=== PATIENT | male | born 1945 | race Caucasian/White ===

== ENCOUNTER 2018-09-02 14:51 | Inpatient (IN) | payer MEDICARE, BC ==
[2018-09-02] VITALS (28 sets, daily range): BP systolic 113–142; BP diastolic 52–75; PULSE 16–77; RESP 12–22; Ht 172.7 cm; Wt 113.1 kg
[~2018-09-02] VITALS: Ht 172.7 cm; Wt 113.1 kg
[~2018-09-02 14:51] MED LIST: SEVOFLURANE 15 MIN ONE
--- NOTE | 2018-09-02 17:27 | HPN ---
Date/Time of Note Date/Time of Note DATE: 09/02/18 TIME: 17:25 Interval H&P Admission Note Pt. seen H&P reviewed: No system changes ELISHA URENA DPM September 02, 2018 17:27
[2018-09-02] MEDS ORDERED: NOVO3I SC (17:59)
[2018-09-02] MEDS ORDERED: VIT500LI PO (17:59)
[2018-09-02] MEDS ORDERED: ATOR10TA65 PO (17:59)
[2018-09-02] MEDS ORDERED: MULTI PO (17:59)
[2018-09-02] MEDS ORDERED: FURO40TA4 PO (17:59)
[2018-09-02] MEDS ORDERED: INSU100I33 SC (17:59)
[2018-09-02] MEDS ORDERED: GABA300C16 PO (17:59)
[2018-09-02] MEDS ORDERED: VIT1TABL65 PO (17:59)
[2018-09-02] MEDS ORDERED: LISI40TA3 PO (17:59)
[2018-09-02] MEDS ORDERED: POTA8TAB2 PO (17:59)
[2018-09-02] MEDS ORDERED: SOD CHLORIDE 0.9% 1,000 ML IV SCH (17:59)
[2018-09-02] MEDS ORDERED: DOXY100T20 PO (17:59)
[2018-09-02] MEDS ORDERED: DORZ1DRO7 BOTH EYES (17:59)
[2018-09-02] MEDS ORDERED: TRAM50TA PO (17:59)
[2018-09-02] MEDS ORDERED: WARF4TAB64 PO (17:59)
[2018-09-02] MEDS ORDERED: CALC600T24 PO (17:59)
[2018-09-02] MEDS ORDERED: DILT180C94 PO (17:59)
--- NOTE | 2018-09-02 19:25 | PREAC ---
Date/Time of Note Date/Time of Note DATE: 09/02/18 TIME: 19:20 Anesthesia Eval and Record Evaluation Time Pre-Procedure Interview DATE: 09/02/18 TIME: 19:20 Age 73 Sex male NPO: 8 hrs Preoperative diagnosis Left foot ulceration Planned procedure Left foot debridement and biopsy, antibiotic cement application, pinning of toes Past Medical History Past Medical History: Includes Cardio: HTN, CAD, CABG, PTCA/Stent Endo: Diabetes Neuro: CVA (Left paralysis) Surgery & Anesthesia Issues No known issue Meds Anticoagulation: No Beta Jazz within 24 hr: No Reason Beta Jazz not given: Pt. not on B-Jazz Reported Medications Insulin Glargine,Hum.rec.anlog (Basaglar Kwikpen U-100) 100 Unit/1 Ml Insuln.pen, 50 UNIT SC QHS, EA 09/02/18 Tramadol Hcl* (Ultram*) 50 Mg Tablet, 50 MG PO BID PRN for PAIN, TAB 09/02/18 Doxycycline Hyclate* (Doxycycline Hyclate*) 100 Mg Tablet.dr, 100 MG PO BID, TAB 09/02/18 Warfarin Sodium* (Warfarin Sodium*) 4 Mg Tablet, 3 MG PO DAILY, TAB 09/02/18 Atorvastatin Calcium (Atorvastatin Calcium) 10 Mg Tablet, 10 MG PO QHS, #30 TAB 09/02/18 Gabapentin* (Gabapentin*) 300 Mg Capsule, 300 MG PO BID, #60 CAP 09/02/18 Calcium Carbonate* (Calcium Carbonate*) 600 MG Ca Tab, 600 MG PO DAILY, TAB 09/02/18 Vit D3 & K/Berberine Hcl/Hops (Ostera Tablet) 1 Each Tablet, 1 EACH PO, TAB 09/02/18 Vit C-Ascorbate Ca-Ascorb Sod (Vitamin C) 500 Mg/15 Ml Liquid, 1000 MG PO DAILY, ML 09/02/18 Multivitamins* (Theragran*) 1 Tab Tab, 1 TAB PO DAILY, TAB 09/02/18 Potassium Chloride* (Klor-Con*) 8 Meq Tablet.sa, 10 MEQ PO DAILY, TAB 09/02/18 Furosemide (Lasix) 40 Mg Tab, 40 MG PO DAILY, TAB 09/02/18 Lisinopril* (Lisinopril*) 40 Mg Tablet, 40 MG PO DAILY, #30 TAB 09/02/18 Diltiazem Hcl* (Diltiazem XT) 180 Mg Capsule.er, 180 MG PO DAILY, #30 CAP 09/02/18 Insulin Aspart* (Novolog Insulin Pen*) 100 Unit/Ml Soln, 15-20 UNIT SC WITH MEALS, EA 09/02/18 Dorzolamide-Timolol* (Cosopt*) 2%-0.5% Pres Free Droperette, 1 DROP BOTH EYES BID, DROP 09/02/18 Current Medications Sodium Chloride 1,000 ml @ 25 mls/hr Q24H IV Last administered on 09/02/18at 18:34; Admin Dose 25 MLS/HR; Start 09/02/18 at 17:59 Meds reviewed: Yes Allergies Coded Allergies: No Known Allergy (Unverified , 09/02/18) Allergies Reviewed: Yes Labs/Studies Labs Reviewed: Reviewed by anesthesiologist test: N/A Pre-procedure Exam Last vitals Vital Signs Date Temp Pulse Resp B/P (MAP) Pulse Ox O2 O2 Flow FiO2 Time Delivery Rate 09/02/18 97.8 16 16 139/63 99 Room Air 17:25 (88) Airway: Adequate mouth opening Mallampati: Mallampati II Teeth: Normal Lung: Normal Heart: Normal ASA Physical Status ASA physical status: 3 Emergency: None Planned Anesthetic General/MAC: LMA Planned Pain Management Parenteral pain med Pre-operative Attestations Prior to commencing anesthesia and surgery, the patient was re-evaluated, there was verification of: *The patient's identity *The results of appropriate recent lab work and preoperative vital signs *The above evaluation not changing prior to induction *Anesthetic plan, risk benefits, alternative and complications discussed with patient/family; questions answered; patient/family understands, accepts and wishes to proceed. ALEXEI OSHEA MD September 02, 2018 19:25
[2018-09-02] MEDS ORDERED: LIDOCAINE 1% (MPF) 30 ML INJ ONE (19:36)
[2018-09-02] MEDS ORDERED: POLYMYXIN/BACITRACIN 1L IRRIG IRR ONE (20:07)
[2018-09-02] MEDS ORDERED: PROPOFOL 20 ML ONE (20:16)
[2018-09-02] MEDS ORDERED: CEFAZOLIN 1 GM INJ ONE (20:16)
[2018-09-02] MEDS ORDERED: EPHEDrine 25 MG/5 ML SYG ONE (20:16)
[2018-09-02] MEDS ORDERED: LIDOCAINE 2% (SDV) 5 ML INJ ONE (20:16)
--- NOTE | 2018-09-02 20:34 | SIPON ---
Date/Time of Note Date/Time of Note DATE: 09/02/18 TIME: 20:33 Operative Report Preoperative Diagnosis left foot ulceration PAD OM left foot Postoperative Diagnosis same Operation/Procedure Performed left foot debridement left foot implantation nonbiodegradable antibiotic cement Surgeon see signature line assistant housekeeping manager Davey Sanchez DPM Anesthesia: MAC Estimated blood loss: 10 - 50 ml's Transfusion Required none Specimen bone culture/ bone pathology Grafts/Implants none Complications none ELISHA URENA DPM September 02, 2018 20:34
[2018-09-02] MEDS ORDERED: EPHEDrine 25 MG/5 ML SYG IV PRN (21:00)
[2018-09-02] MEDS ORDERED: ONDANSETRON 4 MG INJ IV PRN (21:00)
[2018-09-02] MEDS ORDERED: LABETALOL HCL 20MG INJ IV PRN (21:00)
[2018-09-02] MEDS ORDERED: MIDAZOLAM 1 MG/ML 2 ML INJ IV PRN (21:00)
[2018-09-02] MEDS ORDERED: MEPERIDINE 25 MG INJ IV PRN (21:00)
[2018-09-02] MEDS ORDERED: FENTAnyl 50 MCG/ML VIAL IV PRN ×3 (21:00)
[2018-09-02] MEDS ORDERED: DIPHENHYDRAMINE 50 MG INJ IV PRN (21:00)
[2018-09-02] MEDS ORDERED: hydrALAzine 20 MG INJ IV PRN (21:00)
[2018-09-02] MEDS ORDERED: METOCLOPRAMIDE 10 MG INJ IV PRN (21:00)
[2018-09-02] MEDS ORDERED: OXYCODONE/ACETAMINOPHEN (5/325) TAB PO PRN ×2 (21:00)
--- NOTE | 2018-09-02 22:32 | OPR ---
DATE OF OPERATION: 09/02/2018 SURGEON: Elisha Shaffer DPM GEOLOGY TECHNICIAN: Davey Sanchez DPM PREOPERATIVE DIAGNOSES: 1. Left foot hallux infected ulceration. 2. Osteomyelitis. 3. Failed outpatient treatment. 4. Enterococcal infection. 5. Peripheral arterial disease. POSTOPERATIVE DIAGNOSES: 1. Left foot hallux infected ulceration. 2. Osteomyelitis 3. Failed outpatient treatment. 4. Enterococcal infection. 5. Peripheral arterial disease. OPERATION: 1. Left foot excisional debridement of skin, subcutaneous tissue and bone, less than 20 cm2. 2. Implantation of antibiotic polymethyl methacrylate with gentamicin cement. PATHOLOGY: Culture and bone for pathology. ANESTHESIA: MAC with local lidocaine 1% plain. ESTIMATED BLOOD LOSS: 20 mL MATERIALS: Polymethyl methacralate cement with gentamicin. COMPLICATIONS: None. INDICATION FOR PROCEDURE: Infected ulceration left hallux with exposed bone, interphalangeal joint. The patient had radiographs, MRI revealing osteomyelitis of the distal proximal phalanx and sesamoid s. The patient is requesting attempts at limb salvage and patient at risk for amputation. The patie nt is scheduled for elective angiography. Had been seen by vascular in the preoperative setting and also cleared by his primary. The patient has a history of chronic Coumadin use, has a history of cor onary artery disease with CABG in the past. Discussed planned procedure. Informed consent was obtai dillan. All questions answered to family's satisfaction. PROCEDURE IN DETAIL: The patient brought into the operating room and placed in the supine position. Formal timeout was performed. The foot was properly marked, confirmed by the surgical team, prepped and draped in usual sterile fashion. Formal timeout was performed. Using a rongeur, pickup, curet, excisional debridement of the ulceration of necrotic bone, the medial aspect of the hallux IPJ as we ll as ulcerations at the medial aspect of the MPJ and it was irrigated with ____ irrigation. The bon e void was then filled with polymethyl methacrylate cement with gentamicin. Estimated blood loss of 20-30 mL. Hemostasis was achieved. Bulky dressing applied. The patient tolerated the procedure wel l and transferred back to PACU with vital signs stable. POSTOPERATIVE PLAN: Would benefit from ID consultation and follow up with vascular and likely to req uire staged operative intervention. Dictated By: ELISHA SHAFFER DPM RB/KERRY Conf#: [id number] [facility]#: [id number]
[2018-09-03] MEDS: DORZOLAMIDE/TIMOLOL/PF 0.2 ML DROPERETTE BOTH EYES SCH ×3 (01:00→21:48)
[2018-09-03] MEDS ORDERED: traMADol 50 MG TAB PO PRN (01:00)
[2018-09-03] MEDS ORDERED: DEXTROSE 50% 50 ML SYRINGE IV PRN ×2 (01:30)
[2018-09-03] MEDS ORDERED: GLUCOSE GEL 15 GRAM TUBE BUCCAL PRN (01:30)
[2018-09-03] MEDS ORDERED: GLUCOSE GEL 15 GRAM TUBE PO PRN ×2 (01:30)
[2018-09-03] MEDS ORDERED: GLUCAGON 1 MG INJ IM PRN (01:30)
[2018-09-03] MEDS: ACCU-CHEK XX SCH (02:00)
[2018-09-03 02:03] VITALS: BP 122/58; PULSE 72; RESP 18
--- NOTE | 2018-09-03 06:48 | HP ---
Date/Time of Note Date/Time of Note DATE: 09/03/18 TIME: 06:42 Assessment/Plan VTE Prophylaxis Risk score (from Nsg)>0 risk: 2 SCD applied (from Nsg): Yes Pharmacological prophylaxis: other Lines/Catheters IV Catheter Type (from Nrsg): Peripheral IV Assessment/Plan Assessment/Plan 73-year-old male with a history of hypertension, dyslipidemia, insulin-dependent diabetes, CAD with CABG AND CVA with left-sided paralysis after a right carotid surgery 24 years ago who was brought to the hospital by podiatry for Left foot infected ulcer and osteomyelitis and is now status post excisional debridement of skin, subcutaneous tissue and bone and implantation of antibiotic polymethyl methacrylate with gentamicin cement PLAN -Postop management per podiatry -Continue his home medication for management of hypertension, dyslipidemia and diabetes -Check a.m. labs -Pain management -DVT prophylaxis per podiatry -will hold his Coumadin for now until ok'd by podiatry Results 24hrs Laboratory Tests Test 09/02/18 16:13 09/02/18 16:30 09/03/18 02:32 Bedside Glucose 157 200 Prothrombin Time 18.8 H Prothrombin Time Ratio 1.5 INR International Normalized Ratio 1.56 Activated Partial Thromboplast Time 31.2 HPI/ROS Admit Date/Time Admit Date/Time September 02, 2018 at 20:33 Hx of Present Illness Patient is a 73-year-old male with a history of hypertension, dyslipidemia, insulin-dependent diabetes, CAD with CABG, CVA with left-sided paralysis who was brought to the hospital by podiatry for Left foot infected ulcer and osteomyelitis and is now status post excisional debridement of skin, subcutaneous tissue and bone and implantation of antibiotic polymethyl methacrylate with gentamicin cement. Except pain and itching patient without significant complaints. 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 He also has facial droop. PMH/Family/Social Past Medical History Medical History: other (See HPI) Past Surgical History Past Surgical Hx: other (See HPI) Family History Significant Family History: no pertinent family hx Social History Alcohol Use: none Smoking Status: Never smoker Drug Use: none Exam Constitutional: no acute distress Head: normocephalic, atraumatic Eyes: EOMI, PERRL Respiratory: clear to auscultation, normal air movement Cardiovascular: regular rate and rhythm, nl pulses Gastrointestinal: soft, non-tender Extremities: normal pulses Medications Current Medications Sodium Chloride 1,000 ml @ 25 mls/hr Q24H IV Last administered on 09/02/18at 18:34; Admin Dose 25 MLS/HR; Start 09/02/18 at 17:59 Diagnostic Test (Pha) (Accu-Chek) 1 ea 02 XX Last administered on 09/03/18at 02:00; Admin Dose 1 EA; Start 09/03/18 at 02:00 Insulin Aspart (Novolog Insulin Pen) NOVOLOG *MILD* ALGORITHM WITH MEALS BEDTIME SC ; Start 09/03/18 at 08:00 Atorvastatin Calcium (Lipitor) 10 mg QHS PO ; Start 09/03/18 at 21:00 Diltiazem HCl (Cardizem Cd) 180 mg DAILY PO ; Start 09/03/18 at 09:00 Dorzolamide/ Timolol (Cosopt Pf Eye Drops) 1 drop BID BOTH EYES ; Start 09/03/18 at 01:00 Furosemide (Lasix) 40 mg DAILY PO ; Start 09/03/18 at 09:00 Gabapentin (Neurontin) 300 mg BID PO ; Start 09/03/18 at 09:00 Lisinopril (Zestril) 40 mg DAILY PO ; Start 09/03/18 at 09:00 Potassium Chloride (Klor-Con 10) 10 meq DAILY PO ; Start 09/03/18 at 09:00 Tramadol HCl (Ultram) 50 mg BID PRN PO PAIN Last administered on 09/03/18at 01:58; Admin Dose 50 MG; Start 09/03/18 at 01:00 Miscellaneous Information 1 ea NOTE XX ; Start 09/03/18 at 01:30 Glucose (Glutose) 15 gm Q15M PRN PO DECREASED GLUCOSE; Start 09/03/18 at 01:30 Glucose (Glutose) 22.5 gm Q15M PRN PO DECREASED GLUCOSE; Start 09/03/18 at 01:30 Dextrose (D50w Syringe) 25 ml Q15M PRN IV DECREASED GLUCOSE; Start 09/03/18 at 01:30 Dextrose (D50w Syringe) 50 ml Q15M PRN IV DECREASED GLUCOSE; Start 09/03/18 at 01:30 Glucagon (Glucagen) 1 mg Q15M PRN IM DECREASED GLUCOSE; Start 09/03/18 at 01:30 Glucose (Glutose) 15 gm Q15M PRN BUCCAL DECREASED GLUCOSE; Start 09/03/18 at 01:30 Coded Allergies: No Known Allergy (Unverified , 09/02/18) Social History Smoking Status: Never smoker Exam/Review of Systems Vital Signs Vitals Vital Signs Date Temp Pulse Resp B/P (MAP) Pulse Ox O2 O2 Flow FiO2 Time Delivery Rate 09/03/18 98.4 72 18 122/58 94 02:03 (79) 09/02/18 Room Air 22:47 09/02/18 8.0 20:57 Intake and Output 09/02/18 09/02/18 09/03/18 1515:00 23:00 07:00 IntakeIntake Total 750 ml OutputOutput Total 200 ml BalanceBalance 550 ml LYNETTE MORALES MD September 03, 2018 06:48
[2018-09-03] MEDS ORDERED: HYDROCODONE/APAP (10/325) TAB PO ONE (07:30)
[2018-09-03] MEDS: INSULIN ASPART [NOVOLOG] 3 ML PEN SC SCH ×5 (08:20→21:58)
[2018-09-03 08:46] VITALS: BP 157/71; PULSE 86; RESP 20
[2018-09-03] MEDS: FUROSEMIDE 40 MG TAB PO SCH (09:05)
[2018-09-03] MEDS: DILTIAZEM (CD) 180 MG CAP PO SCH (09:05)
[2018-09-03] MEDS: LISINOPRIL 20 MG TAB PO SCH (09:06)
[2018-09-03] MEDS: GABAPENTIN 300 MG CAP PO SCH ×2 (09:06→21:49)
[2018-09-03] MEDS: POTASSIUM CHLORIDE (SR) 10 MEQ TAB PO SCH (09:07)
--- NOTE | 2018-09-03 11:23 | CONS ---
Assessment/Plan Assessment/Plan Hospital Course (Demo Recall) ID PRELIMINARY CONSULT NOTE==> REASON FOR REFERRAL: Antibiotic Recommendations for LEFT FOOT OSTEOMYELITIS CURRENT ABX: DAY #=>s/p ANCEF IV Hx of Present Illness Patient is a 73-year-old male with a history of hypertension, dyslipidemia, insulin-dependent diabetes, CAD with CABG, CVA -> S/P RIGHT- Carotid artery surgery ~24 years ago with persistent left-sided paralysis who was brought to the hospital by podiatry for Left foot infected ulcer and osteomyelitis and is now status post excisional debridement of skin, subcutaneous tissue and bone and implantation of antibiotic polymethyl methacrylate with gentamicin cement on 09/02/18. Patient is now referred to ID for findings of osteomyelitis per surgeon report. * OPERATIVE REPORT NOTE FROM 09/02/18 REVIEWED=> Highlights as below: * Preoperative Diagnosis: left foot ulceration, PAD, OM left foot * Postoperative Diagnosis: same * Operation/Procedure Performed: left foot debridement / left foot implantation nonbiodegradable antibiotic cement * Specimen: bone culture/ bone pathology PMH/Family/Social Past Medical History => Per HPI above Past Medical History: Includes Cardio: HTN, CAD, CABG, PTCA/Stent Endo: Diabetes Neuro: CVA (Left paralysis) Social History Smoking Status: Never smoker 24H INTERVAL SUMMARY * IMAGING * 09/02/18 FOOT XR: IMPRESSION: * 1. Postsurgical changes from interval resection of the base of the first distal phalanx and head neck junction of first proximal phalanx as above. * 2. Osteopenia para * 3. Vascular calcifications. * 08/30/18 CXR:IMPRESSION: Moderate cardiomegaly. Pulmonary vascular congestion and edema is present without consolidation, effusion, or pneumothorax. The patient is status post sternotomy with surgical changes of the mediastinum. * * MICRO/OTHER * 08/30/18 LEFT GREAT TOE Specimen: [id number] Status: Complete Ranjeet: 08/30/18-1337 Rcvd: 08/30/18-0434 Source: LT GR TOE Sp Descrip: GRAM STAIN Final POLYMORPH. LEUKOCYTE 1+ GRAM POSITIVE COCCI RARE WOUND CULTURE Final Organism 1 ENTEROCOCCUS SPECIES QUANTITY 1+ ENT SPS M.I.C. RX --------- --- AMPICILLIN <=2 S PENICILLIN-G 2 S VANCOMYCIN 2 S * PHYSICAL EXAMINATION: GENERAL: VSS, NAD, awake, alert, oriented HEENT: AT, NC, facial droop, NECK: WNL CHEST: Equal chest rise bilaterally without dyspnea on observation EXTREMITIES: Warm, dry == left hemiparalysis SKIN: No rash, no diaphoresis ID ASSESSMENT 73 yo M admit with: 1. SIRS vs early sepsis w/TMax 99.4, ESR 80, Leukocytosis w/WBC 12.o w/increased in Neuts# on admission. 2. Complex ACUTE LEFT FOOT DIABETIC ISCHEMIC FOOT INFECTION 3. Left foot ulceration 4. OM left foot 5. PAD 6. Diabetes = IDDM w/complications of DM peripheral neuropathy * Gabapentin onboard for painful neuropathy 7. Vasculopathy with hx of Carotid, Coronary, Peripheral arterial disease 8. 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 Hx of R-carotid endarterectomy ~24 years ago 10. CAD w/Hx of prior [place] = Ischemic heart disease * -> S/P remote 3V-CABG, in addition to PCI w/stents 11. Heart Failure -> current LV Fx/ EF unknown 12. HTN 13. Hyperlipidemia (?)MRSA Nares ABX ALLERGIES: KNDA INVASIVES: PIV CURRENT ABX: DAY # =>s/p ANCEF IV Vanco IV ID RECOMMENDATIONS/PLAN: 1. No need for repeat labs as INR from yesterday is 1.5 and renal fx is WNL from 09/02/18 labs. 2. Patient and spouse given risk benefit of PICC line insertion below and and give verbal consent -- they will sign informed consent and PICC line will be ordered today * Benefits: HH required fo 6-weeks Vanco IV, RN can draw labs from PICC, preserves peripheral veins and protects from vesicant IV ABX, one time insert * Risks: Bleeding (he in on Warfarin), infection (strict hand hygiene discussed), thrombus -- less likely on Warfarin 3. Patient may DC when cleared by primary on Vancomycin IV dose per OP pharmacy with HH RN PICC line, and IV ABX infusion * PICC line ordered * CASE Manger Consult ordered 4. Patient must [facility] with [facility] regarding 09/02/18 bone culture results if he is DC'd prior to results being posted. . August f/u with Dr. Moya outpatient in 7-10 days of DC for review of bone cultures and IV Vancomycin tolerance if desired = optional All of the above discussed w/patient and spouse who were able to verbalize understanding, agreement, and gratitude for plan of care. * The patient is eager to DC today; however I explained to them that I have no control of the next steps that must be put in place in terms of PICC Line insertion * Thank you for this consult -- Report called to Dr. Christiano Mckeon MD who concurs . Consultation Date/Type/Reason Admit Date/Time September 02, 2018 at 20:33 Initial Consult Date Type of Consult INFECTIOUS DISEASES Date/Time of Note DATE: 09/03/18 TIME: 09:51 Exam/Review of Systems Exam Vitals Vital Signs Date Temp Pulse Resp B/P (MAP) Pulse Ox O2 O2 Flow FiO2 Time Delivery Rate 09/03/18 98.8 86 20 157/71 92 08:46 (99) 09/02/18 Room Air 22:47 09/02/18 8.0 20:57 Intake and Output 09/02/18 09/02/18 09/03/18 1515:00 23:00 07:00 IntakeIntake Total 750 ml OutputOutput Total 200 ml BalanceBalance 550 ml Results Results 24hrs Laboratory Tests Test 09/02/18 16:13 09/02/18 16:30 09/03/18 02:32 09/03/18 08:10 Bedside Glucose 157 200 263 H Prothrombin Time 18.8 H Prothrombin Time 1.5 Ratio INR International 1.56 Normalized Ratio Activated 31.2 Partial Thromboplast Time Medications Medication Current Medications Sodium Chloride 1,000 ml @ 25 mls/hr Q24H IV Last administered on 09/02/18at 18:34; Admin Dose 25 MLS/HR; Start 09/02/18 at 17:59 Diagnostic Test (Pha) (Accu-Chek) 1 ea 02 XX Last administered on 09/03/18at 02:00; Admin Dose 1 EA; Start 09/03/18 at 02:00 Insulin Aspart (Novolog Insulin Pen) NOVOLOG *MILD* ALGORITHM WITH MEALS BEDTIME SC Last administered on 09/03/18at 08:20; Admin Dose 4 UNIT; Start 09/03/18 at 08:00 Atorvastatin Calcium (Lipitor) 10 mg QHS PO ; Start 09/03/18 at 21:00 Diltiazem HCl (Cardizem Cd) 180 mg DAILY PO Last administered on 09/03/18at 09:05; Admin Dose 180 MG; Start 09/03/18 at 09:00 Dorzolamide/ Timolol (Cosopt Pf Eye Drops) 1 drop BID BOTH EYES ; Start 09/03/18 at 01:00 Furosemide (Lasix) 40 mg DAILY PO Last administered on 09/03/18at 09:05; Admin Dose 40 MG; Start 09/03/18 at 09:00 Gabapentin (Neurontin) 300 mg BID PO Last administered on 09/03/18at 09:06; Admin Dose 300 MG; Start 09/03/18 at 09:00 Lisinopril (Zestril) 40 mg DAILY PO Last administered on 09/03/18at 09:06; Admin Dose 40 MG; Start 09/03/18 at 09:00 Potassium Chloride (Klor-Con 10) 10 meq DAILY PO Last administered on 09/03/18at 09:07; Admin Dose 10 MEQ; Start 09/03/18 at 09:00 Tramadol HCl (Ultram) 50 mg BID PRN PO PAIN Last administered on 09/03/18at 01:58; Admin Dose 50 MG; Start 09/03/18 at 01:00 Miscellaneous Information 1 ea NOTE XX ; Start 09/03/18 at 01:30 Glucose (Glutose) 15 gm Q15M PRN PO DECREASED GLUCOSE; Start 09/03/18 at 01:30 Glucose (Glutose) 22.5 gm Q15M PRN PO DECREASED GLUCOSE; Start 09/03/18 at 01:30 Dextrose (D50w Syringe) 25 ml Q15M PRN IV DECREASED GLUCOSE; Start 09/03/18 at 01:30 Dextrose (D50w Syringe) 50 ml Q15M PRN IV DECREASED GLUCOSE; Start 09/03/18 at 01:30 Glucagon (Glucagen) 1 mg Q15M PRN IM DECREASED GLUCOSE; Start 09/03/18 at 01:30 Glucose (Glutose) 15 gm Q15M PRN BUCCAL DECREASED GLUCOSE; Start 09/03/18 at 01:30 MATTHEW MAHONEY NP September 03, 2018 10:02
[2018-09-03] MEDS ORDERED: LIDOCAINE 1% (MPF) 5 ML VIAL SC ONE (11:30)
[2018-09-03] MEDS ORDERED: ACETAMINOPHEN 325 MG TAB PO PRN (11:30)
--- NOTE | 2018-09-03 11:48 | CONS ---
Assessment/Plan Assessment/Plan Assessment/Plan (Daily) Left foot hallux infected ulceration. Osteomyelitis DM2 with peripheral neuropathy Peripheral arterial disease CAD s/p CABG hx of CVA left sided weakness Plan Patient was seen and evaluated and discussed intra-op findings with patient and . Recommend ID consult and patient would benefit from PICC line abx. Previous wound Cx showed enteroccocus species. Intra-op cultures/pathology pending. Patient is scheduled to follow up with Dr. Smith vascular surgery outpatient wound care clinic. Patient will likely need staged procedures for salvage. Tight glycemic control and pain medications as needed. Dispense CAM boot for left foot. Patient may use left lower extremity for transfer. Consultation Date/Type/Reason Admit Date/Time September 02, 2018 at 20:33 Initial Consult Date Date/Time of Note DATE: 09/03/18 TIME: 11:47 24 HR Interval Summary Free Text/Dictation No acute events overnight Exam/Review of Systems Exam Vitals Vital Signs Date Temp Pulse Resp B/P (MAP) Pulse Ox O2 O2 Flow FiO2 Time Delivery Rate 09/03/18 98.8 86 20 157/71 92 08:46 (99) 09/02/18 Room Air 22:47 09/02/18 8.0 20:57 Intake and Output 09/02/18 09/02/18 09/03/18 1515:00 23:00 07:00 IntakeIntake Total 750 ml OutputOutput Total 200 ml BalanceBalance 550 ml Exam dressings are clean dry and intact no strikethrough drainage appreciate no proximal streaking absent protective sensations Results Results 24hrs Laboratory Tests Test 09/02/18 16:13 09/02/18 16:30 09/03/18 02:32 09/03/18 08:10 Bedside Glucose 157 200 263 H Prothrombin Time 18.8 H Prothrombin Time 1.5 Ratio INR International 1.56 Normalized Ratio Activated 31.2 Partial Thromboplast Time Medications Medication Current Medications Sodium Chloride 1,000 ml @ 25 mls/hr Q24H IV Last administered on 09/02/18at 18:34; Admin Dose 25 MLS/HR; Start 09/02/18 at 17:59 Diagnostic Test (Pha) (Accu-Chek) 1 ea 02 XX Last administered on 09/03/18at 02 :00; Admin Dose 1 EA; Start 09/03/18 at 02:00 Insulin Aspart (Novolog Insulin Pen) NOVOLOG *MILD* ALGORITHM WITH MEALS BEDTIME SC Last administered on 09/03/18at 08:20; Admin Dose 4 UNIT; Start 09/03/18 at 08:00 Atorvastatin Calcium (Lipitor) 10 mg QHS PO ; Start 09/03/18 at 21:00 Diltiazem HCl (Cardizem Cd) 180 mg DAILY PO Last administered on 09/03/18at 09:05; Admin Dose 180 MG; Start 09/03/18 at 09:00 Dorzolamide/ Timolol (Cosopt Pf Eye Drops) 1 drop BID BOTH EYES ; Start 09/03/18 at 01:00 Furosemide (Lasix) 40 mg DAILY PO Last administered on 09/03/18at 09:05; Admin Dose 40 MG; Start 09/03/18 at 09:00 Gabapentin (Neurontin) 300 mg BID PO Last administered on 09/03/18at 09:06; Admin Dose 300 MG; Start 09/03/18 at 09:00 Lisinopril (Zestril) 40 mg DAILY PO Last administered on 09/03/18at 09:06; Admin Dose 40 MG; Start 09/03/18 at 09:00 Potassium Chloride (Klor-Con 10) 10 meq DAILY PO Last administered on 09/03/18at 09:07; Admin Dose 10 MEQ; Start 09/03/18 at 09:00 Tramadol HCl (Ultram) 50 mg BID PRN PO PAIN Last administered on 09/03/18at 01:58; Admin Dose 50 MG; Start 09/03/18 at 01:00 Miscellaneous Information 1 ea NOTE XX ; Start 09/03/18 at 01:30 Glucose (Glutose) 15 gm Q15M PRN PO DECREASED GLUCOSE; Start 09/03/18 at 01:30 Glucose (Glutose) 22.5 gm Q15M PRN PO DECREASED GLUCOSE; Start 09/03/18 at 01:30 Dextrose (D50w Syringe) 25 ml Q15M PRN IV DECREASED GLUCOSE; Start 09/03/18 at 01:30 Dextrose (D50w Syringe) 50 ml Q15M PRN IV DECREASED GLUCOSE; Start 09/03/18 at 01:30 Glucagon (Glucagen) 1 mg Q15M PRN IM DECREASED GLUCOSE; Start 09/03/18 at 01:30 Glucose (Glutose) 15 gm Q15M PRN BUCCAL DECREASED GLUCOSE; Start 09/03/18 at 01:30 Acetaminophen (Tylenol Tab) 650 mg Q4H PRN PO PAIN LEVEL 1-3; Start 09/03/18 at 11:30 BAILEY MOON DPM September 03, 2018 11:48
--- NOTE | 2018-09-03 15:48 | PN ---
Date/Time of Note Date/Time of Note DATE: 09/03/18 TIME: 15:44 Assessment/Plan VTE Prophylaxis Risk [place] [facility] [place] risk: 3 SCD applied (from [facility] [place]): No SCD contraindicated: low risk/ambulating, bilateral LE trauma, bilateral amputee Pharmacological prophylaxis: NA/contraindicated, LMWH Pharm contraindication: low risk/ambulating Lines/Catheters IV Catheter Type (from [facility]): [place] Assessment/Plan Hospital Course A/P 1. Left foot diabetic ulcer/ OM, stable cont wound care, sp debridement. home with PICC line and antibiotics. 2. DFI; outpt Podiatry 3. DM II 4. CAD/ CABG 5. H/o Rt Cea 6. DL 7. HTN 8. PAD? S: wants to go home O: vss PE no pallor reg s1s2 no mrg ctab bs+ nt nd no r r g; overwt edema/ stasis; dressed lt wound Result Diagram: 09/03/18 1120 09/03/18 1120 Results 24hrs Laboratory Tests Test 09/02/18 16:13 09/02/18 16:30 09/03/18 02:32 09/03/18 08:10 Bedside Glucose 157 200 263 H Prothrombin Time 18.8 H Prothrombin Time 1.5 Ratio INR International 1.56 Normalized Ratio Activated 31.2 Partial Thromboplast Time Test 09/03/18 11:20 09/03/18 13:14 White Blood Count 9.2 # Red Blood Count 3.92 L Hemoglobin 11.7 L Hematocrit 37.0 L Mean Corpuscular 94.4 Volume Mean Corpuscular 29.8 Hemoglobin Mean Corpuscular 31.6 L Hemoglobin Concent Red Cell 14.3 Distribution Width Platelet Count 276 Mean Platelet Volume 8.8 Immature 0.200 Granulocytes % Neutrophils % 74.7 Lymphocytes % 16.6 Monocytes % 7.5 Eosinophils % 0.7 Basophils % 0.3 Nucleated Red Blood 0.0 Cells % Immature 0.020 Granulocytes # Neutrophils # 6.9 Lymphocytes # 1.5 Monocytes # 0.7 Eosinophils # 0.1 Basophils # 0.0 Nucleated Red Blood 0.0 Cells # Sodium Level 137 Potassium Level 4.5 Chloride Level 105 Carbon Dioxide Level 24 Anion Gap 8 Blood Urea Nitrogen 13 Creatinine 0.62 Est Glomerular Filtrat Rate mL/min Glucose Level 334 H Hemoglobin A1c 7.7 H Calcium Level 8.0 L Total Bilirubin 0.4 Direct Bilirubin 0.00 Indirect Bilirubin 0.4 Aspartate Amino 12 L Transf (AST/SGOT) Alanine 21 Aminotransferase (AL T/SGPT) Alkaline Phosphatase 84 Total Protein 6.5 Albumin 2.9 L Globulin 3.60 H Albumin/Globulin 0.80 Ratio Triglycerides Level 93 Cholesterol Level 95 L LDL Cholesterol, 47 Calculated HDL Cholesterol 29 L Cholesterol/HDL 3.2 Ratio Bedside Glucose 303 H Exam/Review of Systems Exam Vitals Vital Signs Date Temp Pulse Resp B/P (MAP) Pulse Ox O2 O2 Flow FiO2 Time Delivery Rate 09/03/18 98.8 86 20 157/71 92 08:46 (99) 09/02/18 Room Air 22:47 09/02/18 8.0 20:57 Intake and Output 09/02/18 09/02/18 09/03/18 1515:00 23:00 07:00 IntakeIntake Total 750 ml OutputOutput Total 200 ml BalanceBalance 550 ml Results Results 24hrs Laboratory Tests Test 09/02/18 16:13 09/02/18 16:30 09/03/18 02:32 09/03/18 08:10 Bedside Glucose 157 200 263 H Prothrombin Time 18.8 H Prothrombin Time 1.5 Ratio INR International 1.56 Normalized Ratio Activated 31.2 Partial Thromboplast Time Test 09/03/18 11:20 09/03/18 13:14 White Blood Count 9.2 # Red Blood Count 3.92 L Hemoglobin 11.7 L Hematocrit 37.0 L Mean Corpuscular 94.4 Volume Mean Corpuscular 29.8 Hemoglobin Mean Corpuscular 31.6 L Hemoglobin Concent Red Cell 14.3 Distribution Width Platelet Count 276 Mean Platelet Volume 8.8 Immature 0.200 Granulocytes % Neutrophils % 74.7 Lymphocytes % 16.6 Monocytes % 7.5 Eosinophils % 0.7 Basophils % 0.3 Nucleated Red Blood 0.0 Cells % Immature 0.020 Granulocytes # Neutrophils # 6.9 Lymphocytes # 1.5 Monocytes # 0.7 Eosinophils # 0.1 Basophils # 0.0 Nucleated Red Blood 0.0 Cells # Sodium Level 137 Potassium Level 4.5 Chloride Level 105 Carbon Dioxide Level 24 Anion Gap 8 Blood Urea Nitrogen 13 Creatinine 0.62 Est Glomerular Filtrat Rate mL/min Glucose Level 334 H Hemoglobin A1c 7.7 H Calcium Level 8.0 L Total Bilirubin 0.4 Direct Bilirubin 0.00 Indirect Bilirubin 0.4 Aspartate Amino 12 L Transf (AST/SGOT) Alanine 21 Aminotransferase (AL T/SGPT) Alkaline Phosphatase 84 Total Protein 6.5 Albumin 2.9 L Globulin 3.60 H Albumin/Globulin 0.80 Ratio Triglycerides Level 93 Cholesterol Level 95 L LDL Cholesterol, 47 Calculated HDL Cholesterol 29 L Cholesterol/HDL 3.2 Ratio Bedside Glucose 303 H Medications Medication Current Medications Sodium Chloride 1,000 ml @ 25 mls/hr Q24H IV Last administered on 09/02/18 18:34; Admin Dose 25 MLS/HR; Start 09/02/18 at 17:59 Diagnostic Test (Pha) (Accu-Chek) 1 ea 02 XX Last administered on 09/03/18 02:00; Admin Dose 1 EA; Start 09/03/18 at 02:00 Insulin Aspart (Novolog Insulin Pen) NOVOLOG *MILD* ALGORITHM WITH MEALS BEDTIME SC Last administered on 09/03/18 13:19; Admin Dose 5 UNIT; Start 09/03/18 at 08:00 Atorvastatin Calcium (Lipitor) 10 mg QHS PO ; Start 09/03/18 at 21:00 Diltiazem HCl (Cardizem Cd) 180 mg DAILY PO Last administered on 09/03/18 09:05; Admin Dose 180 MG; Start 09/03/18 at 09:00 Dorzolamide/ Timolol (Cosopt Pf Eye Drops) 1 drop BID BOTH EYES Last administered on 09/03/18 13:12; Admin Dose 1 DROP; Start 09/03/18 at 01:00 Furosemide (Lasix) 40 mg DAILY PO Last administered on 09/03/18 09:05; Admin Dose 40 MG; Start 09/03/18 at 09:00 Gabapentin (Neurontin) 300 mg BID PO Last administered on 09/03/18 09:06; Admin Dose 300 MG; Start 09/03/18 at 09:00 Lisinopril (Zestril) 40 mg DAILY PO Last administered on 09/03/18 09:06; Admin Dose 40 MG; Start 09/03/18 at 09:00 Potassium Chloride (Klor-Con 10) 10 meq DAILY PO Last administered on 09/03/18 09:07; Admin Dose 10 MEQ; Start 09/03/18 at 09:00 Tramadol HCl (Ultram) 50 mg BID PRN PO PAIN Last administered on 09/03/18at 01:58; Admin Dose 50 MG; Start 09/03/18 at 01:00 Miscellaneous Information 1 ea NOTE XX ; Start 09/03/18 at 01:30 Glucose (Glutose) 15 gm Q15M PRN PO DECREASED GLUCOSE; Start 09/03/18 at 01:30 Glucose (Glutose) 22.5 gm Q15M PRN PO DECREASED GLUCOSE; Start 09/03/18 at 01:30 Dextrose (D50w Syringe) 25 ml Q15M PRN IV DECREASED GLUCOSE; Start 09/03/18 at 01:30 Dextrose (D50w Syringe) 50 ml Q15M PRN IV DECREASED GLUCOSE; Start 09/03/18 at 01:30 Glucagon (Glucagen) 1 mg Q15M PRN IM DECREASED GLUCOSE; Start 09/03/18 at 01:30 Glucose (Glutose) 15 gm Q15M PRN BUCCAL DECREASED GLUCOSE; Start 09/03/18 at 01:30 Acetaminophen (Tylenol Tab) 650 mg Q4H PRN PO PAIN LEVEL 1-3; Start 09/03/18 at 11:30 ALEIDA BOND MD September 03, 2018 15:48
[2018-09-03 15:54] VITALS: BP 141/69; PULSE 75; RESP 20
--- NOTE | 2018-09-03 15:54 | PDOCDIS ---
Discharge Instructions CONDITION [id number] Patient Condition: Nyror9m Stable HOME CARE INSTRUCTIONS: [id number] Diet Instructions: [id number] ACTIVITY: [id number] Activity Restrictions: [id number] Slowly Increase Activity Avoid heavy lifting FOLLOW UP/APPOINTMENTS Follow-up Plan Podiatry 1wk PCP & Dr Moya 2wks ALEIDA BOND MD September 03, 2018 15:54
[2018-09-03] MEDS ORDERED: LACT1CAP28 PO (15:55)
[2018-09-03] MEDS ORDERED: DEXT37.54 PO (15:55)
[2018-09-03] MEDS ORDERED: VANCOMYCIN IV PER PHARMACY XX SCH (17:00)
[2018-09-03] MEDS ORDERED: INSULIN LISPRO 100 UNIT/ML VIAL SC SCH (17:30)
[2018-09-03] MEDS ORDERED: VANCOMYCIN HCL 2 GM in SOD CHLORIDE 0.9% 500 ML IVPB ONE (17:30)
[2018-09-03] MEDS: VANCOMYCIN HCL 1.25 GM in SOD CHLORIDE 0.9% 250 ML IVPB SCH (18:48)
--- NOTE | 2018-09-03 19:54 | PAC ---
Date/Time of Note Date/Time of Note DATE: 09/03/18 TIME: 19:53 Post-Anesthesia Notes Post-Anesthesia Note Last documented vital signs Vital Signs Date Temp Pulse Resp B/P (MAP) Pulse Ox O2 O2 Flow FiO2 Time Delivery Rate 09/03/18 98.7 75 20 141/69 95 15:54 (93) 09/02/18 Room Air 22:47 09/02/18 8.0 20:57 Activity: WNL Respiratory function: WNL Cardiovascular function: WNL Mental status: Baseline Pain reasonably controlled: Yes Hydration appropriate: Yes Nausea/Vomiting absent: Yes ALEXEI OSHEA MD September 03, 2018 19:54
[2018-09-03 20:05] VITALS: BP 167/81; PULSE 84; RESP 18
[2018-09-03] MEDS: ATORVASTATIN 10 MG TAB PO SCH (21:49)
[2018-09-03] MEDS: LACTOBACILLUS RHAMNOSUS CAP PO SCH (21:49)
[2018-09-03] MEDS: INSULIN GLARGINE [LANTus] (100 UNITS/ML) SYG SC SCH (21:58)
[2018-09-03] MEDS ORDERED: ENOXAPARIN 40 MG/0.4 ML SYG SC ONE (22:30)
--- NOTE | 2018-09-04 01:02 | CONS ---
DATE OF ADMISSION: 09/02/2018 DATE OF CONSULTATION: REQUESTING PHYSICIAN: Elisha Shaffer DPM HISTORY OF PRESENT ILLNESS: The patient is a 73-year-old white male. The patient has diabet es mellitus, peripheral vascular disease, and coronary artery disease. He sustained an infected left diabetic foot ulcer on his left great toe, at the junction of the distal and proximal phalanx, and w as admitted on 08/30/2018 for evaluation and debridement of his left great toe. Prior to that, he wa s taking doxycycline and tramadol. He grew enterococcus sensitive to penicillin, ampicillin and vanc omycin. The patient was taken to the operative theater and had debridement, culture and sensitivity, and implantation of a methyl methacrylate spacer with gentamicin cement. X-ray taken postoperativel y revealed interval resection of the base of the 1st distal phalanx and head-neck junction of the pro ximal phalanx with hyperdense material overlying the distal lower aspect of the proximal 1st phalanx as well as medial to the 1st MP joint. Soft tissue swelling was most prominent in the 1st toe. Mild hypertrophic change at the 1st MTP and vascular calcifications. The patient tolerated the procedure well. His white count, which was originally 12,000 when he came in to the hospital, is presently 97 00. His erythrocyte sedimentation rate is 80 mm per hour. He was begun treatment with vancomycin in travenously. He is on standby for a PICC line, but this is a holiday weekend, so that will be delay d and probably until Wednesday. 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 The electrocardiogra m reveals atrial fibrillation and left anterior hemiblock; this was taken on 09/01/2018. PHYSICAL EXAMINATION: GENERAL: Reveals a talkative white male with intravenous line in his right hand. VITAL SIGNS: Include a temperature of 98.7 orally, pulse 75, respirations 20, blood pressure 141/69 and pulse oximetry 95% on room air. HEENT: The pupils are equal, round and reactive to light. Extraocular movements are full. NECK: There is no jugular venous distention. CHEST: Increased AP diameter. It is clear to auscultation. HEART: Irregularly irregular. ABDOMEN: Obese, soft. There is a median sternotomy scar which is well healed. There is mild dysfun ction to the left hand. EXTREMITIES: Reveals that the left distal foot and leg are wrapped in bulky bandage to support an un derlying plaster splint. IMPRESSION: 1. Osteomyelitis of the 1st great toe of left foot with resection of the PIP joint and insertion of a methyl methacrylate joint spacer. 2. Peripheral vascular disease. 3. Coronary artery disease with coronary artery bypass graft surgery. 4. Diabetes mellitus, insulin-dependent. 5. Hypertension. 6. Hyperlipidemia. 7. Benign prostatic hypertrophy. 8. Irritable bowel syndrome. 9. Atrial fibrillation, controlled rate. RECOMMENDATIONS: I would suggest that the patient be placed on vancomycin via PICC line for 42 days. Pharmacy to determine the dosage and then to monitor the renal function. The BUN presently is 17 a nd creatinine is 0.76. Dictated By: Shay FRANKS/NTS Conf#: [id number] DID#: [id number] CC: ELISHA SHAFFER DPM;*EndCC*
[2018-09-04 02:40] VITALS: BP 147/66; PULSE 73; RESP 16
[2018-09-04] MEDS: ACCU-CHEK XX SCH (02:56)
[2018-09-04] MEDS: VANCOMYCIN HCL 1.25 GM in SOD CHLORIDE 0.9% 250 ML IVPB SCH ×2 (05:44→17:18)
[2018-09-04 08:05] VITALS: BP 151/67; PULSE 71; RESP 20
[2018-09-04] MEDS: INSULIN ASPART [NOVOLOG] 3 ML PEN SC SCH ×7 (08:23→20:25)
[2018-09-04] MEDS: DORZOLAMIDE/TIMOLOL/PF 0.2 ML DROPERETTE BOTH EYES SCH ×2 (09:19→20:29)
[2018-09-04] MEDS: DILTIAZEM (CD) 180 MG CAP PO SCH (09:20)
[2018-09-04] MEDS: LACTOBACILLUS RHAMNOSUS CAP PO SCH ×2 (09:20→20:27)
[2018-09-04] MEDS: GABAPENTIN 300 MG CAP PO SCH ×2 (09:20→20:29)
[2018-09-04] MEDS: POTASSIUM CHLORIDE (SR) 10 MEQ TAB PO SCH (09:21)
[2018-09-04] MEDS: FUROSEMIDE 40 MG TAB PO SCH (09:21)
[2018-09-04] MEDS: LISINOPRIL 20 MG TAB PO SCH (09:22)
--- NOTE | 2018-09-04 10:40 | DS ---
Date/Time of Note Date/Time of Note DATE: 09/04/18 TIME: 10:39 Discharge Summary Admission/Discharge Info Admit Date/Time September 02, 2018 at 20:33 Discharge Date/Time Patient Condition: Stable Consults Podiatry Infectious disease Procedures Debridement PICC line placement Hx of Present Illness 73-year-old gentleman admitted with left lower extremity ulcer/concern of osteomyelitis Hospital Course Hospitalist course/hospital coverage 1. Left foot diabetic ulcer/ OM, stable cont wound care, sp debridement. home with PICC line and antibiotics (vancomycin) for 42 days. 2. DFI; outpt Podiatry 3. DM II 4. CAD/ CABG 5. H/o Rt Cea 6. DL 7. HTN 8. PAD? S: wants to go home O: vss PE no pallor reg s1s2 no mrg ctab bs+ nt nd no r r g; overwt edema/ stasis; dressed lt wound Home Meds Active Scripts Lactobacillus Rhamnosus GG (Culturelle) 1 Each Capsule, 1 CAP PO BID for 30 Days, CAP otc Prov:ALEIDA BOND MD 09/03/18 Dextrose (Glutose 15) 37.5 Gm Gel..gm., 15 GM PO Q15M PRN for DECREASED GLUCOSE for 10 Days Prov:ALEIDA BOND MD 09/03/18 Reported Medications Insulin Glargine,Hum.rec.anlog (Basaglar Kwikpen U-100) 100 Unit/1 Ml Insuln.pen, 50 UNIT SC QHS, EA 09/02/18 Tramadol Hcl* (Ultram*) 50 Mg Tablet, 50 MG PO BID PRN for PAIN, TAB 09/02/18 Warfarin Sodium* (Warfarin Sodium*) 4 Mg Tablet, 3 MG PO DAILY, TAB 09/02/18 Atorvastatin Calcium (Atorvastatin Calcium) 10 Mg Tablet, 10 MG PO QHS, #30 TAB 09/02/18 Gabapentin* (Gabapentin*) 300 Mg Capsule, 300 MG PO BID, #60 CAP 09/02/18 Calcium Carbonate* (Calcium Carbonate*) 600 MG Ca Tab, 600 MG PO DAILY, TAB 09/02/18 Vit D3 & K/Berberine Hcl/Hops (Ostera Tablet) 1 Each Tablet, 1 EACH PO, TAB 09/02/18 Vit C-Ascorbate Ca-Ascorb Sod (Vitamin C) 500 Mg/15 Ml Liquid, 1000 MG PO DAILY, ML 09/02/18 Multivitamins* (Theragran*) 1 Tab Tab, 1 TAB PO DAILY, TAB 09/02/18 Potassium Chloride* (Klor-Con*) 8 Meq Tablet.sa, 10 MEQ PO DAILY, TAB 09/02/18 Furosemide (Lasix) 40 Mg Tab, 40 MG PO DAILY, TAB 09/02/18 Lisinopril* (Lisinopril*) 40 Mg Tablet, 40 MG PO DAILY, #30 TAB 09/02/18 Diltiazem Hcl* (Diltiazem XT) 180 Mg Capsule.er, 180 MG PO DAILY, #30 CAP 09/02/18 Insulin Aspart* (Novolog Insulin Pen*) 100 Unit/Ml Soln, 15-20 UNIT SC WITH MEALS, EA 09/02/18 Dorzolamide-Timolol* (Cosopt*) 2%-0.5% Pres Free Droperette, 1 DROP BOTH EYES BID, DROP 09/02/18 Discontinued Reported Medications Doxycycline Hyclate* (Doxycycline Hyclate*) 100 Mg Tablet., 100 MG PO BID, TAB 09/02/18 Follow-up Plan Podiatry 1wk PCP & Dr Moya 2wks Primary Care Provider Not On Staff Doctor Time spent on discharge: > 30 minutes Pending Labs Laboratory Tests Test 09/03/18 11:20 09/03/18 13:14 09/03/18 17:44 09/03/18 21:51 White Blood 9.2 Count 10^3/ul (4.8-10 .8) Red Blood 3.92 Count 10^6/ul (4.70-6 .10) Hemoglobin 11.7 g/dl (14.0-18.0 ) Hematocrit 37.0 % (42.0-52.0) Mean 94.4 Corpuscular fl (82.0-101.0) Volume Mean 29.8 Corpuscular pg (29.0-33.0) Hemoglobin Mean 31.6 Corpuscular g/dl (32.0-37.0 Hemoglobin Conc ) ent Red Cell 14.3 Distribution % (11.5-14.5) Width Platelet Count 276 10^3/UL (140-41 5) Mean Platelet 8.8 Volume fl (7.4-10.4) Immature 0.200 Granulocytes % % (0.001-0.429) Neutrophils % 74.7 % (39.0-77.0) Lymphocytes % 16.6 % (15.0-51.0) Monocytes % 7.5 % (0.0-11.0) Eosinophils % 0.7 % (0.0-7.0) Basophils % 0.3 % (0.0-2.0) Nucleated Red 0.0 Blood Cells % /100WBC (0.0-0. 0) Immature 0.020 Granulocytes # 10^3/ul (0.0-0. 031) Neutrophils # 6.9 10^3/ul (1.6-7. 5) Lymphocytes # 1.5 10^3/ul (0.8-2. 9) Monocytes # 0.7 10^3/ul (0.3-0. 9) Eosinophils # 0.1 10^3/ul (0.0-0. 5) Basophils # 0.0 10^3/ul (0.0-0. 1) Nucleated Red 0.0 Blood Cells # 10^3/ul (0.0-0. 0) Sodium Level 137 mmol/L (135-144 ) Potassium 4.5 Level mmol/L (3.5-5.1 ) Chloride Level 105 mmol/L (97-110) Carbon Dioxide 24 Level mmol/L (21-31) Anion Gap 8 (5-13) Blood Urea 13 mg/dl (7-20) Nitrogen Creatinine 0.62 mg/dl (0.61-1.2 4) Est Glomerular mL/min (>60) Filtrat Rate mL/min Glucose Level 334 mg/dl (70-220) Hemoglobin A1c 7.7 % (0-5.9) Calcium Level 8.0 mg/dl (8.4-10.2 ) Total 0.4 Bilirubin mg/dl (0.2-1.3) Direct 0.00 Bilirubin mg/dl (0.00-0.2 0) Indirect 0.4 Bilirubin mg/dl (0-1.1) Aspartate Amino 12 IU/L (15-46) Transf (AST/SGO T) Alanine 21 IU/L (13-69) Aminotransferas e (ALT/SGPT) Alkaline 84 Phosphatase IU/L (42-121) Total Protein 6.5 g/dl (6.1-8.1) Albumin 2.9 g/dl (3.3-4.9) Globulin 3.60 g/dl (1.3-3.2) Albumin/Globuli 0.80 n Ratio Triglycerides 93 Level mg/dl (0-149) Cholesterol 95 Level mg/dl (100-200) LDL 47 mg/dl Cholesterol, Calculated HDL 29 Cholesterol mg/dl (31-75) Cholesterol/HDL 3.2 RATIO Ratio Bedside 303 320 306 Glucose mg/dL (70-220) mg/dL (70-220) mg/dL (70-220) Test 09/04/18 02:49 09/04/18 08:22 Bedside 233 222 Glucose mg/dL (70-220) mg/dL (70-220) ALEIDA BOND MD September 04, 2018 10:40
[2018-09-04 14:00] VITALS: BP 129/59; PULSE 76; RESP 20
--- NOTE | 2018-09-04 17:40 | CONS ---
Assessment/Plan Assessment/Plan Hospital Course (Demo Recall) ID PRELIMINARY CONSULT NOTE==> REASON FOR REFERRAL: Antibiotic Recommendations for LEFT FOOT OSTEOMYELITIS CURRENT ABX: DAY #=>Vanco IV s/p ANCEF IV 24H INTERVAL SUMMARY * A/A/O -- VSS, NAD, new left foot boot is putting pressure on his toe; hence I loosened it. * He has mild anxiety and reports feeling lonely here in the hospital -- he is disappointed that DC plan was held up by PICC Line placement and he wants me to arrange for his DC home and call his . I spent time offering him encouragement and explained I can't get involved as this is being handled by nursing staff -- he implores me to get involved and help him and his make arrangements now - -my regrets to the patient -- I called for the RN to please give him an update. Encouraged him to be patient as not all aspects of DC planning are controllable and I have NO control, nor do I have any ability to direct this processes. MICRO/OTHER * 09/02/18 LEFT GREAT TOE TISSUE CX (+) WOUND CULTURE Preliminary Organism 1 ENTEROCOCCUS SPECIES QUANTITY 1+ * 08/30/18 LEFT GREAT TOE Specimen: [id number] Status: Complete Ranjeet: 08/30/18-1336 Rcvd: 08/30/18 Source: LT GR TOE Sp Descrip: WOUND CULTURE Final Organism 1 ENTEROCOCCUS SPECIES QUANTITY 1+ ENT SPS M.I.C. RX --------- --- AMPICILLIN <=2 S PENICILLIN-G 2 S VANCOMYCIN 2 S IMAGING * 09/02/18 FOOT XR: IMPRESSION: * 1. Postsurgical changes from interval resection of the base of the first distal phalanx and head neck junction of first proximal phalanx as above. * 2. Osteopenia para * 3. Vascular calcifications. * 08/30/18 CXR:IMPRESSION: Moderate cardiomegaly. Pulmonary vascular congestion and edema is present without consolidation, effusion, or pneumothorax. The patient is status post sternotomy with surgical changes of the mediastinum. * PHYSICAL EXAMINATION: GENERAL: VSS, NAD, awake, alert, oriented HEENT: AT, NC, facial droop, NECK: WNL CHEST: Equal chest rise bilaterally without dyspnea on observation EXTREMITIES: Warm, dry == left hemiparalysis SKIN: No rash, no diaphoresis ID ASSESSMENT 73 yo M admit with: 1. SIRS vs early sepsis w/TMax 99.4, ESR 80, Leukocytosis w/WBC 12.o w/increased in Neuts# on admission. 2. Complex ACUTE LEFT FOOT DIABETIC ISCHEMIC FOOT INFECTION 3. Left foot ulceration 4. OM left foot 5. PAD 6. Diabetes = IDDM w/complications of DM peripheral neuropathy * Gabapentin onboard for painful neuropathy 7. Vasculopathy with hx of Carotid, Coronary, Peripheral arterial disease 8. 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 Hx of R-carotid endarterectomy ~24 years ago 10. CAD w/Hx of prior [place] = Ischemic heart disease * -> S/P remote 3V-CABG, in addition to PCI w/stents 11. Heart Failure -> current LV Fx/ EF unknown 12. HTN 13. Hyperlipidemia (?)MRSA Nares ABX ALLERGIES: KNDA INVASIVES: PIV CURRENT ABX: DAY # =>s/p ANCEF IV Vanco IV ID RECOMMENDATIONS/PLAN: 1. No need for repeat labs as INR from yesterday is 1.5 and renal fx is WNL from 09/02/18 labs. 2. Patient and spouse given risk benefit of PICC line insertion below and and give verbal consent -- they will sign informed consent and PICC line will be ordered today * Benefits: HH required fo 6-weeks Vanco IV, RN can draw labs from PICC, preserves peripheral veins and protects from vesicant IV ABX, one time insert * Risks: Bleeding (he in on Warfarin), infection (strict hand hygiene discussed), thrombus -- less likely on Warfarin 3. Patient may DC when cleared by primary on Vancomycin IV dose per OP pharmacy with HH RN PICC line, and IV ABX infusion * PICC line ordered * CASE Manger Consult ordered 4. Patient must [facility] regarding 09/02/18 bone culture results if he is DC'd prior to results being posted. 5. May f/u with Dr. Moya outpatient in 14 days post DC for review of bone cultures and IV Vancomycin tolerance if desired = optional . Consultation Date/Type/Reason Admit Date/Time September 02, 2018 at 20:33 Initial Consult Date Type of Consult INFECTIOUS DISEASES Date/Time of Note DATE: 09/04/18 TIME: 17:21 Exam/Review of Systems Exam Vitals Vital Signs Date Temp Pulse Resp B/P (MAP) Pulse Ox O2 O2 Flow FiO2 Time Delivery Rate 09/04/18 97.9 76 20 129/59 96 14:00 (82) 09/02/18 Room Air 22:47 09/02/18 8.0 20:57 Intake and Output 09/03/18 09/03/18 09/04/18 1414:59 22:59 06:59 IntakeIntake Total 460 ml 1570 ml 600 ml OutputOutput Total 150 ml 300 ml BalanceBalance 310 ml 1270 ml 600 ml Results Result Diagram: 09/04/18 1058 09/04/18 1058 Results 24hrs Laboratory Tests Test 09/03/18 17:44 09/03/18 21:51 09/04/18 02:49 09/04/18 08:22 Bedside Glucose 320 H 306 H 233 H 222 H Test 09/04/18 10:58 09/04/18 13:26 White Blood Count 7.9 Red Blood Count 4.08 L Hemoglobin 12.1 L Hematocrit 38.5 L Mean Corpuscular 94.4 Volume Mean Corpuscular 29.7 Hemoglobin Mean Corpuscular 31.4 L Hemoglobin Concent Red Cell 14.2 Distribution Width Platelet Count 251 Mean Platelet Volume 8.9 Immature 0.400 Granulocytes % Neutrophils % 69.4 Lymphocytes % 21.0 Monocytes % 8.0 Eosinophils % 0.9 Basophils % 0.3 Nucleated Red Blood 0.0 Cells % Immature 0.030 Granulocytes # Neutrophils # 5.5 Lymphocytes # 1.7 Monocytes # 0.6 Eosinophils # 0.1 Basophils # 0.0 Nucleated Red Blood 0.0 Cells # Sodium Level 136 Potassium Level 4.4 Chloride Level 105 Carbon Dioxide Level 25 Anion Gap 6 Blood Urea Nitrogen 13 Creatinine 0.69 Est Glomerular Filtrat Rate mL/min Glucose Level 254 H Calcium Level 8.3 L Magnesium Level 2.2 Total Bilirubin 0.3 Direct Bilirubin 0.00 Indirect Bilirubin 0.3 Aspartate Amino 14 L Transf (AST/SGOT) Alanine 11 L Aminotransferase (AL T/SGPT) Alkaline Phosphatase 74 Total Protein 6.8 Albumin 3.3 Globulin 3.50 H Albumin/Globulin 0.94 Ratio Thyroid Stimulating 0.656 Hormone (TSH) Bedside Glucose 215 Medications Medication Current Medications Diagnostic Test (Pha) (Accu-Chek) 1 ea 02 XX Last administered on 09/04/18 02:56; Admin Dose 1 EA; Start 09/03/18 at 02:00 Insulin Aspart (Novolog Insulin Pen) NOVOLOG *MILD* ALGORITHM WITH MEALS BEDTIME SC Last administered on 09/04/18 13:30; Admin Dose 2 UNIT; Start 09/03/18 at 08:00 Atorvastatin Calcium (Lipitor) 10 mg QHS PO Last administered on 09/03/18 21:49; Admin Dose 10 MG; Start 09/03/18 at 21:00 Diltiazem HCl (Cardizem Cd) 180 mg DAILY PO Last administered on 09/04/18 09:20; Admin Dose 180 MG; Start 09/03/18 at 09:00 Dorzolamide/ Timolol (Cosopt Pf Eye Drops) 1 drop BID BOTH EYES Last administered on 09/04/18 09:19; Admin Dose 1 DROP; Start 09/03/18 at 01:00 Furosemide (Lasix) 40 mg DAILY PO Last administered on 09/04/18 09:21; Admin Dose 40 MG; Start 09/03/18 at 09:00 Gabapentin (Neurontin) 300 mg BID PO Last administered on 09/04/18 09:20; Admin Dose 300 MG; Start 09/03/18 at 09:00 Lisinopril (Zestril) 40 mg DAILY PO Last administered on 09/04/18 09:22; Admin Dose 40 MG; Start 09/03/18 at 09:00 Potassium Chloride (Klor-Con 10) 10 meq DAILY PO Last administered on 09/04/18 09:21; Admin Dose 10 MEQ; Start 09/03/18 at 09:00 Tramadol HCl (Ultram) 50 mg BID PRN PO PAIN Last administered on 09/03/18 01:58; Admin Dose 50 MG; Start 09/03/18 at 01:00 Miscellaneous Information 1 ea NOTE XX ; Start 09/03/18 at 01:30 Glucose (Glutose) 15 gm Q15M PRN PO DECREASED GLUCOSE; Start 09/03/18 at 01:30 Glucose (Glutose) 22.5 gm Q15M PRN PO DECREASED GLUCOSE; Start 09/03/18 at 01:30 Dextrose (D50w Syringe) 25 ml Q15M PRN IV DECREASED GLUCOSE; Start 09/03/18 at 01:30 Dextrose (D50w Syringe) 50 ml Q15M PRN IV DECREASED GLUCOSE; Start 09/03/18 at 01:30 Glucagon (Glucagen) 1 mg Q15M PRN IM DECREASED GLUCOSE; Start 09/03/18 at 01:30 Glucose (Glutose) 15 gm Q15M PRN BUCCAL DECREASED GLUCOSE; Start 09/03/18 at 01:30 Acetaminophen (Tylenol Tab) 650 mg Q4H PRN PO PAIN LEVEL 1-3 Last administered on 09/04/18at 13:35; Admin Dose 650 MG; Start 09/03/18 at 11:30 Lactobacillus Acidophilus/ Rhamnosus (Culturelle) 1 cap BID PO Last administered on 09/04/18at 09:20; Admin Dose 1 CAP; Start 09/03/18 at 21:00 Insulin Glargine (Lantus) 45 units DAILY@2000 SC Last administered on 09/03/18at 21:58; Admin Dose 45 UNITS; Start 09/03/18 at 20:00 Vancomycin HCl (Vanco Iv Per Pharmacy) VANCOMYCIN PER PHARMACY Please prov... PER PROTOCOL XX ; Start 09/03/18 at 17:00; Stop 10/15/18 at 16:59 Vancomycin HCl 1.25 gm/Sodium Chloride 250 ml @ 83.333 mls/ hr Q12H IVPB Last administered on 09/04/18at 05:44; Admin Dose 83.333 MLS/HR; Start 09/04/18 at 06:00 Insulin Aspart (Novolog Insulin Pen) 15 unit AC MEALS SC Last administered on 09/04/18at 13:30; Admin Dose 15 UNIT; Start 09/03/18 at 18:00 Enoxaparin Sodium (Lovenox) 40 mg QHS SC ; Start 09/04/18 at 21:00 Miscellaneous Information (*Rx Drug Level Order Reminder*) VANCO TR LEVEL PRIOR... 0500 ONCE XX ; Start 09/05/18 at 05:00; Stop 09/05/18 at 05:01 MATTHEW MAHONEY NP September 04, 2018 17:31
[2018-09-04 19:36] VITALS: BP 124/58; PULSE 76; RESP 18
[2018-09-04] MEDS: INSULIN GLARGINE [LANTus] (100 UNITS/ML) SYG SC SCH (20:24)
[2018-09-04] MEDS: ATORVASTATIN 10 MG TAB PO SCH (20:27)
[2018-09-04] MEDS ORDERED: ENOXAPARIN 40 MG/0.4 ML SYG SC SCH (21:00)
[2018-09-05 01:39] VITALS: BP 123/60; PULSE 80; RESP 18
[2018-09-05] MEDS: ACCU-CHEK XX SCH (02:00)
[2018-09-05] MEDS: VANCOMYCIN HCL 1.25 GM in SOD CHLORIDE 0.9% 250 ML IVPB SCH (06:09)
[2018-09-05 07:25] VITALS: BP 117/53; PULSE 70; RESP 17
[2018-09-05] MEDS: DORZOLAMIDE/TIMOLOL/PF 0.2 ML DROPERETTE BOTH EYES SCH (08:06)
[2018-09-05] MEDS: DILTIAZEM (CD) 180 MG CAP PO SCH (08:07)
[2018-09-05] MEDS: LACTOBACILLUS RHAMNOSUS CAP PO SCH (08:10)
[2018-09-05] MEDS: LISINOPRIL 20 MG TAB PO SCH (08:11)
[2018-09-05] MEDS: FUROSEMIDE 40 MG TAB PO SCH (08:12)
[2018-09-05] MEDS: POTASSIUM CHLORIDE (SR) 10 MEQ TAB PO SCH (08:12)
[2018-09-05] MEDS: GABAPENTIN 300 MG CAP PO SCH (08:12)
[2018-09-05] MEDS: INSULIN ASPART [NOVOLOG] 3 ML PEN SC SCH ×4 (08:14→13:35)
--- NOTE | 2018-09-05 12:52 | PN ---
Date/Time of Note Date/Time of Note DATE: 09/05/18 TIME: 12:44 Assessment/Plan VTE Prophylaxis Risk score (from Ns)>0 risk: 5 SCD applied (from Ns): No SCD contraindicated: other Pharmacological prophylaxis: warfarin tx Lines/Catheters IV Catheter Type (from Nrsg): PICC Line Central line still needed: Yes Assessment/Plan Assessment/Plan 1. Left foot diabetic ulcer/ osteomyelitis s/p debridement - Podiatry on board and appreciate consultation. okay to use LLE for transfer with boot. Will need to follow up with [facility] in [address] Smith - PICC line in place and will need IV antibiotics for total of 6 weeks 2. Diabetes mellitus - Lantus and Novolog - A1c noted - will continue home regime since sugars better controlled at home 3. CAD s/p CABG - continue home medications 4. h/o rt CEA 5. HTN - stable 6. Disposition - Medically stable for discharge once HHPT and IV antibiotic arrangements made Result Diagram: 09/04/18 1058 09/04/18 1058 Results 24hrs Laboratory Tests Test 09/04/18 13:26 09/04/18 18:12 09/04/18 20:20 09/05/18 02:15 Bedside Glucose 215 241 H 254 H 177 Test 09/05/18 05:05 09/05/18 07:59 Vancomycin Level 13.6 Trough Bedside Glucose 186 Subjective 24 Hr Interval Summary Free Text/Dictation Patient is doing well but complaining of fatigue since has not been able to sleep well while inpatient. No acute overnight events. Exam/Review of Systems Exam Vitals Vital Signs Date Temp Pulse Resp B/P (MAP) Pulse Ox O2 O2 Flow FiO2 Time Delivery Rate 09/05/18 98.2 70 17 117/53 96 07:25 (74) 09/02/18 Room Air 22:47 09/02/18 8.0 20:57 Intake and Output 09/04/18 09/04/18 09/05/18 1515:00 23:00 07:00 IntakeIntake Total 1110 ml 1090 ml 480 ml OutputOutput Total 935 ml 100 ml 650 ml BalanceBalance 175 ml 990 ml -170 ml Exam General: Patient is pleasant, currently lying in bed in no acute distress Neck: Supple Chest: Nontender Lungs: Clear to auscultation bilaterally, no wheezing or rhonchi Heart: Normal S1-S2, Regular rhythm and rate. No murmur, S3, or S4 Abdomen: Soft , nontender, nondistended , bowel sounds are present. No guarding no rebound tenderness Extremities: LLE dressing in place. no discharge or drainage Results Results 24hrs Laboratory Tests Test 09/04/18 13:26 09/04/18 18:12 09/04/18 20:20 09/05/18 02:15 Bedside Glucose 215 241 H 254 H 177 Test 09/05/18 05:05 09/05/18 07:59 Vancomycin Level 13.6 Trough Bedside Glucose 186 Medications Medication Current Medications Diagnostic Test (Pha) (Accu-Chek) 1 ea 02 XX Last administered on 09/04/18 02:56; Admin Dose 1 EA; Start 09/03/18 at 02:00 Insulin Aspart (Novolog Insulin Pen) NOVOLOG *MILD* ALGORITHM WITH MEALS BEDTIME SC Last administered on 09/05/18 08:19; Admin Dose 2 UNIT; Start 09/03/18 at 08:00 Atorvastatin Calcium (Lipitor) 10 mg QHS PO Last administered on 09/04/18 20:27; Admin Dose 10 MG; Start 09/03/18 at 21:00 Diltiazem HCl (Cardizem Cd) 180 mg DAILY PO Last administered on 09/05/18 08:07; Admin Dose 180 MG; Start 09/03/18 at 09:00 Dorzolamide/ Timolol (Cosopt Pf Eye Drops) 1 drop BID BOTH EYES Last administered on 09/05/18 08:06; Admin Dose 1 DROP; Start 09/03/18 at 01:00 Furosemide (Lasix) 40 mg DAILY PO Last administered on 09/05/18 08:12; Admin Dose 40 MG; Start 09/03/18 at 09:00 Gabapentin (Neurontin) 300 mg BID PO Last administered on 09/05/18 08:12; Admin Dose 300 MG; Start 09/03/18 at 09:00 Lisinopril (Zestril) 40 mg DAILY PO Last administered on 09/05/18 08:11; Admin Dose 40 MG; Start 09/03/18 at 09:00 Potassium Chloride (Klor-Con 10) 10 meq DAILY PO Last administered on 09/05/18 08:12; Admin Dose 10 MEQ; Start 09/03/18 at 09:00 Tramadol HCl (Ultram) 50 mg BID PRN PO PAIN Last administered on 09/03/18at 01:58; Admin Dose 50 MG; Start 09/03/18 at 01:00 Miscellaneous Information 1 ea NOTE XX ; Start 09/03/18 at 01:30 Glucose (Glutose) 15 gm Q15M PRN PO DECREASED GLUCOSE; Start 09/03/18 at 01:30 Glucose (Glutose) 22.5 gm Q15M PRN PO DECREASED GLUCOSE; Start 09/03/18 at 01:30 Dextrose (D50w Syringe) 25 ml Q15M PRN IV DECREASED GLUCOSE; Start 09/03/18 at 01:30 Dextrose (D50w Syringe) 50 ml Q15M PRN IV DECREASED GLUCOSE; Start 09/03/18 at 01:30 Glucagon (Glucagen) 1 mg Q15M PRN IM DECREASED GLUCOSE; Start 09/03/18 at 01:30 Glucose (Glutose) 15 gm Q15M PRN BUCCAL DECREASED GLUCOSE; Start 09/03/18 at 01:30 Acetaminophen (Tylenol Tab) 650 mg Q4H PRN PO PAIN LEVEL 1-3 Last administered on 09/04/18at 13:35; Admin Dose 650 MG; Start 09/03/18 at 11:30 Lactobacillus Acidophilus/ Rhamnosus (Culturelle) 1 cap BID PO Last administered on 09/05/18at 08:10; Admin Dose 1 CAP; Start 09/03/18 at 21:00 Insulin Glargine (Lantus) 45 units DAILY@2000 SC Last administered on 09/04/18at 20:24; Admin Dose 45 UNITS; Start 09/03/18 at 20:00 Vancomycin HCl (Vanco Iv Per Pharmacy) VANCOMYCIN PER PHARMACY Please prov... PER PROTOCOL XX ; Start 09/03/18 at 17:00; Stop 10/15/18 at 16:59 Vancomycin HCl 1.25 gm/Sodium Chloride 250 ml @ 83.333 mls/ hr Q12H IVPB Last administered on 09/05/18at 06:09; Admin Dose 83.333 MLS/HR; Start 09/04/18 at 06:00 Insulin Aspart (Novolog Insulin Pen) 15 unit AC MEALS SC Last administered on 09/05/18at 08:14; Admin Dose 15 UNIT; Start 09/03/18 at 18:00 Enoxaparin Sodium (Lovenox) 40 mg QHS SC Last administered on 09/04/18at 20:26; Admin Dose 40 MG; Start 09/04/18 at 21:00 ELINOR LIVINGSTON MD September 05, 2018 12:52
[2018-09-05] MEDS ORDERED: INSU100I33 SC (12:53)
--- NOTE | 2018-09-05 12:56 | PDOCDIS ---
Discharge Instructions DIAGNOSIS Discharge Diagnosis 1. Left foot diabetic ulcer/ osteomyelitis s/p debridement 2. Diabetes mellitus 3. CAD s/p CABG 4. h/o rt CEA 5. HTN CONDITION [id number] Patient Condition: [id number] Stable HOME CARE INSTRUCTIONS: [id number] Diet Instructions: [id number] ACTIVITY: [id number] Activity Restrictions: [id number] Slowly Increase Activity Avoid heavy lifting FOLLOW UP/APPOINTMENTS Follow-up Plan 1. Follow up with your primary care physician in 1-2 weeks 2. Follow up with Dr. Smith in [facility] in 1 week 3. Follow up with Dr. Moya in 2 weeks. Please call the office to make an appointment 4. Continue all home medications as previously prescribed 5. You are allowed to use your left lower extremity for transferring with the boot on but avoid putting your full weight on left leg until cleared by podiatry 6. If experiencing any concerning symptoms, please go to your closest emergency department REFERRALS Other Referrals Abimael Moya MD Specialty Infectious Disease Comments Office Address [address] [place] [address] [place] [id number] Office ELINOR LIVINGSTON MD September 05, 2018 12:56
[2018-09-05 14:22] VITALS: BP 133/56; PULSE 70; RESP 18
--- NOTE | 2018-09-05 15:51 | CONS ---
Assessment/Plan Assessment/Plan Hospital Course (Demo Recall) ID PRELIMINARY CONSULT NOTE==> REASON FOR REFERRAL: Antibiotic Recommendations for LEFT FOOT OSTEOMYELITIS CURRENT ABX: DAY #=>Vanco IV s/p ANCEF IV 24H INTERVAL SUMMARY * CLINICALLY STATUS QUO --- NO NEW ISSUES -- DC PLANNING DELAYED DUE TO PICC LINE TIMING AND HOLIDAY -- HE IS UNDER MILD PSYCHOSOCIAL DISTRESS DUE TO HOSPITALIZATION AND IN NEED OF ENCOURAGMENT AND SUPPORT. * A/A/O -- VSS, NAD, new left foot boot is putting pressure on his toe; hence I loosened it. MICRO/OTHER * 09/02/18 LEFT GREAT TOE TISSUE CX (+) WOUND CULTURE FINAL Organism 1 ENTEROCOCCUS SPECIES WOUND CULTURE Final Organism 1 ENTEROCOCCUS SPECIES QUANTITY 1+ ENT SPS M.I.C. RX --------- --- AMPICILLIN <=2 S PENICILLIN-G 2 S VANCOMYCIN 2 S * 08/30/18 LEFT GREAT TOE Specimen: [id number] Status: Complete Ranjeet: 08/30/18-1337 Rcvd: 08/30/18-1649 Source: LT GR TOE Sp Descrip: WOUND CULTURE Final Organism 1 ENTEROCOCCUS SPECIES QUANTITY 1+ ENT SPS M.I.C. RX --------- --- AMPICILLIN <=2 S PENICILLIN-G 2 S VANCOMYCIN 2 S IMAGING * 09/02/18 FOOT XR: IMPRESSION: * 1. Postsurgical changes from interval resection of the base of the first distal phalanx and head neck junction of first proximal phalanx as above. * 2. Osteopenia para * 3. Vascular calcifications. * 08/30/18 CXR:IMPRESSION: Moderate cardiomegaly. Pulmonary vascular congestion and edema is present without consolidation, effusion, or pneumothorax. The patient is status post sternotomy with surgical changes of the mediastinum. * PHYSICAL EXAMINATION: GENERAL: VSS, NAD, awake, alert, oriented HEENT: AT, NC, facial droop, NECK: WNL CHEST: Equal chest rise bilaterally without dyspnea on observation EXTREMITIES: Warm, dry == left hemiparalysis SKIN: No rash, no diaphoresis ID ASSESSMENT 73 yo M admit with: 1. SIRS vs early sepsis w/TMax 99.4, ESR 80, Leukocytosis w/WBC 12.o w/increased in Neuts# on admission. 2. Complex ACUTE LEFT FOOT DIABETIC ISCHEMIC FOOT INFECTION 3. Left foot ulceration 4. OM left foot 5. PAD 6. Diabetes = IDDM w/complications of DM peripheral neuropathy * Gabapentin onboard for painful neuropathy 7. Vasculopathy with hx of Carotid, Coronary, Peripheral arterial disease 8. 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 Hx of R-carotid endarterectomy ~24 years ago 10. CAD w/Hx of prior [place] = Ischemic heart disease * -> S/P remote 3V-CABG, in addition to PCI w/stents 11. Heart Failure -> current LV Fx/ EF unknown 12. HTN 13. Hyperlipidemia (?)MRSA Nares ABX ALLERGIES: KNDA INVASIVES: PIV CURRENT ABX: DAY # =>s/p ANCEF IV Vanco IV ID RECOMMENDATIONS/PLAN: 1, Patient may DC when cleared by primary on Vancomycin IV dose per OP pharmacy with HH RN PICC line, and IV ABX infusion X 42 DAYS 2. Patient must [facility] regarding 09/02/18 bone culture results if he is DC'd prior to results being posted. 3. May f/u with Dr. Moya outpatient in 14 days post DC for review of bone cultures and IV Vancomycin tolerance if desired = optional . Consultation Date/Type/Reason Admit Date/Time September 02, 2018 at 20:33 Initial Consult Date Type of Consult INFECTIOUS DISEASES Date/Time of Note DATE: 09/05/18 TIME: 15:46 Exam/Review of Systems Exam Vitals Vital Signs Date Temp Pulse Resp B/P (MAP) Pulse Ox O2 O2 Flow FiO2 Time Delivery Rate 09/05/18 98.3 70 18 133/56 95 14:22 (81) 09/02/18 Room Air 22:47 09/02/18 8.0 20:57 Intake and Output 09/04/18 09/04/18 09/05/18 1414:59 22:59 06:59 IntakeIntake Total 1110 ml 1090 ml 480 ml OutputOutput Total 935 ml 100 ml 650 ml BalanceBalance 175 ml 990 ml -170 ml Results Result Diagram: 09/04/18 1058 09/04/18 1058 Results 24hrs Laboratory Tests Test 09/04/18 18:12 09/04/18 20:20 09/05/18 02:15 09/05/18 05:05 Bedside Glucose 241 H 254 H 177 Vancomycin Level 13.6 Trough Test 09/05/18 07:59 09/05/18 13:32 Bedside Glucose 186 208 Medications Medication Current Medications Diagnostic Test (Pha) (Accu-Chek) 1 ea 02 XX Last administered on 09/04/18 02:56; Admin Dose 1 EA; Start 09/03/18 at 02:00 Insulin Aspart (Novolog Insulin Pen) NOVOLOG *MILD* ALGORITHM WITH MEALS BEDTIME SC Last administered on 09/05/18 13:35; Admin Dose 2 UNIT; Start 09/03/18 at 08:00 Atorvastatin Calcium (Lipitor) 10 mg QHS PO Last administered on 09/04/18 20:27; Admin Dose 10 MG; Start 09/03/18 at 21:00 Diltiazem HCl (Cardizem Cd) 180 mg DAILY PO Last administered on 09/05/18 08:07; Admin Dose 180 MG; Start 09/03/18 at 09:00 Dorzolamide/ Timolol (Cosopt Pf Eye Drops) 1 drop BID BOTH EYES Last administered on 09/05/18 08:06; Admin Dose 1 DROP; Start 09/03/18 at 01:00 Furosemide (Lasix) 40 mg DAILY PO Last administered on 09/05/18 08:12; Admin Dose 40 MG; Start 09/03/18 at 09:00 Gabapentin (Neurontin) 300 mg BID PO Last administered on 09/05/18 08:12; Admin Dose 300 MG; Start 09/03/18 at 09:00 Lisinopril (Zestril) 40 mg DAILY PO Last administered on 09/05/18 08:11; Admin Dose 40 MG; Start 09/03/18 at 09:00 Potassium Chloride (Klor-Con 10) 10 meq DAILY PO Last administered on 09/05/18 08:12; Admin Dose 10 MEQ; Start 09/03/18 at 09:00 Tramadol HCl (Ultram) 50 mg BID PRN PO PAIN Last administered on 09/03/18 01:58; Admin Dose 50 MG; Start 09/03/18 at 01:00 Miscellaneous Information 1 ea NOTE XX ; Start 09/03/18 at 01:30 Glucose (Glutose) 15 gm Q15M PRN PO DECREASED GLUCOSE; Start 09/03/18 at 01:30 Glucose (Glutose) 22.5 gm Q15M PRN PO DECREASED GLUCOSE; Start 09/03/18 at 01:30 Dextrose (D50w Syringe) 25 ml Q15M PRN IV DECREASED GLUCOSE; Start 09/03/18 at 01:30 Dextrose (D50w Syringe) 50 ml Q15M PRN IV DECREASED GLUCOSE; Start 09/03/18 at 01:30 Glucagon (Glucagen) 1 mg Q15M PRN IM DECREASED GLUCOSE; Start 09/03/18 at 01:30 Glucose (Glutose) 15 gm Q15M PRN BUCCAL DECREASED GLUCOSE; Start 09/03/18 at 01:30 Acetaminophen (Tylenol Tab) 650 mg Q4H PRN PO PAIN LEVEL 1-3 Last administered on 09/04/18at 13:35; Admin Dose 650 MG; Start 09/03/18 at 11:30 Lactobacillus Acidophilus/ Rhamnosus (Culturelle) 1 cap BID PO Last administered on 09/05/18at 08:10; Admin Dose 1 CAP; Start 09/03/18 at 21:00 Insulin Glargine (Lantus) 45 units DAILY@2000 SC Last administered on 09/04/18at 20:24; Admin Dose 45 UNITS; Start 09/03/18 at 20:00 Vancomycin HCl (Vanco Iv Per Pharmacy) VANCOMYCIN PER PHARMACY Please prov... PER PROTOCOL XX ; Start 09/03/18 at 17:00; Stop 10/15/18 at 16:59 Vancomycin HCl 1.25 gm/Sodium Chloride 250 ml @ 83.333 mls/ hr Q12H IVPB Last administered on 09/05/18 06:09; Admin Dose 83.333 MLS/HR; Start 09/04/18 at 06:00 Insulin Aspart (Novolog Insulin Pen) 15 unit AC MEALS SC Last administered on 09/05/18at 13:34; Admin Dose 15 UNIT; Start 09/03/18 at 18:00 Enoxaparin Sodium (Lovenox) 40 mg QHS SC Last administered on 09/04/18at 20:26; Admin Dose 40 MG; Start 09/04/18 at 21:00 MATTHEW MAHONEY NP September 05, 2018 15:51
--- NOTE | 2018-09-05 17:23 | DS ---
Date/Time of Note Date/Time of Note DATE: 09/05/18 TIME: 17:14 Discharge Summary Admission/Discharge Info Admit Date/Time September 02, 2018 at 20:33 Discharge Date/Time September 05, 2018 at 16:10 Discharge Diagnosis 1. Left foot diabetic ulcer/ osteomyelitis s/p debridement 2. Diabetes mellitus 3. CAD s/p CABG 4. h/o rt CEA 5. HTN Patient Condition: Stable Consults Infectious disease- Dr. Moya Podiatry- Dr. Abernathy Procedures Date/Time of Note Date/Time of Note DATE: 09/02/18 TIME: 20:33 Operative Report Preoperative Diagnosis left foot ulceration PAD OM left foot Postoperative Diagnosis same Operation/Procedure Performed left foot debridement left foot implantation nonbiodegradable antibiotic cement Hx of Present Illness Patient is a 73-year-old male with a history of hypertension, dyslipidemia, ins ulin-dependent diabetes, CAD with CABG, CVA with left-sided paralysis who was brought to the hospital by podiatry for Left foot infected ulcer and osteomyelitis and is now status post excisional debridement of skin, subcutaneous tissue and bone and implantation of antibiotic polymethyl methacrylate with gentamicin cement. Except pain and itching patient without significant complaints. 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 He also has facial droop. Hospital Course Patient was admitted following debridement in OR and tolerated well. Infectious disease was consulted for antibiotic recommendations. Patient was recommended for 6 week course of IV Vancomycin following wound culture results. PICC line was placed and CM was consulted for HHPT and IV antibiotic arrangements. Patient was recommended to follow up with [facility] and ID after discharge. Patient was continued on Lantus and Novolog for glucose control in setting of diabetes mellitus. Patient progressed well during hospitalization and was discharged home with home health services in good condition. Home Meds Active Scripts Insulin Glargine,Hum.rec.anlog (Basaglar Kwikpen U-100) 100 Unit/1 Ml Insuln.pen, 45 UNIT SC QHS for 30 Days, #1 EA Prov:ELINOR LIVINGSTON MD 09/05/18 Lactobacillus Rhamnosus GG (Culturelle) 1 Each Capsule, 1 CAP PO BID for 30 Days, CAP otc Prov:ALEIDA BOND MD 09/03/18 Dextrose (Glutose 15) 37.5 Gm Gel..gm., 15 GM PO Q15M PRN for DECREASED GLUCOSE for 10 Days Prov:ALEIDA BOND MD 09/03/18 Reported Medications Tramadol Hcl* (Ultram*) 50 Mg Tablet, 50 MG PO BID PRN for PAIN, TAB 09/02/18 Warfarin Sodium* (Warfarin Sodium*) 4 Mg Tablet, 3 MG PO DAILY, TAB 09/02/18 Atorvastatin Calcium (Atorvastatin Calcium) 10 Mg Tablet, 10 MG PO QHS, #30 TAB 09/02/18 Gabapentin* (Gabapentin*) 300 Mg Capsule, 300 MG PO BID, #60 CAP 09/02/18 Calcium Carbonate* (Calcium Carbonate*) 600 MG Ca Tab, 600 MG PO DAILY, TAB 09/02/18 Vit D3 & K/Berberine Hcl/Hops (Ostera Tablet) 1 Each Tablet, 1 EACH PO, TAB 09/02/18 Vit C-Ascorbate Ca-Ascorb Sod (Vitamin C) 500 Mg/15 Ml Liquid, 1000 MG PO DAILY, ML 09/02/18 Multivitamins* (Theragran*) 1 Tab Tab, 1 TAB PO DAILY, TAB 09/02/18 Potassium Chloride* (Klor-Con*) 8 Meq Tablet.sa, 10 MEQ PO DAILY, TAB 09/02/18 Furosemide (Lasix) 40 Mg Tab, 40 MG PO DAILY, TAB 09/02/18 Lisinopril* (Lisinopril*) 40 Mg Tablet, 40 MG PO DAILY, #30 TAB 09/02/18 Diltiazem Hcl* (Diltiazem XT) 180 Mg Capsule.er, 180 MG PO DAILY, #30 CAP 09/02/18 Insulin Aspart* (Novolog Insulin Pen*) 100 Unit/Ml Soln, 15-20 UNIT SC WITH MEALS, EA 09/02/18 Dorzolamide-Timolol* (Cosopt*) 2%-0.5% Pres Free Droperette, 1 DROP BOTH EYES BID, DROP 09/02/18 Discontinued Reported Medications Doxycycline Hyclate* (Doxycycline Hyclate*) 100 Mg Tablet.dr, 100 MG PO BID, TAB 09/02/18 Follow-up Plan 1. Follow up with your primary care physician in 1-2 weeks 2. Follow up with Dr. Smith in [facility] clinic in 1 week 3. Follow up with Dr. Moya in 2 weeks. Please call the office to make an appointment 4. Continue all home medications as previously prescribed 5. You are allowed to use your left lower extremity for transferring with the boot on but avoid putting your full weight on left leg until cleared by podiatry 6. If experiencing any concerning symptoms, please go to your closest emergency department Primary Care Provider Not On Staff Doctor Time spent on discharge: > 30 minutes Pending Labs Laboratory Tests Test 09/04/18 18:12 09/04/18 20:20 09/05/18 02:15 09/05/18 05:05 Bedside 241 254 177 Glucose mg/dL (70-220) mg/dL (70-220) mg/dL (70-220) Vancomycin 13.6 Level Trough ug/ml (10.0-20 .0) Test 09/05/18 07:59 09/05/18 13:32 Bedside 186 208 Glucose mg/dL (70-220) mg/dL (70-220) ELINOR LIVINGSTON MD September 05, 2018 17:23
== END 2018-09-05 16:10 | disposition home health service (06) | DRG 629 ==
LOC: SDS 14:51 → 2NE 20:33
PROVIDERS: ADMIT Podiatrist Foot & Ankle Surgery; ATTEND Podiatrist Foot & Ankle Surgery
PROC: 0QBR0ZZ Excision of Left Toe Phalanx, Open Approach (ICD-10-PCS; principal; 2018-09-02 18:00)
PROC: 02HV33Z Insertion of Infusion Device into Superior Vena Cava, Percutaneous Approach (ICD-10-PCS; 2018-09-04)
PROC: B54MZZA Ultrasonography of Right Upper Extremity Veins, Guidance (ICD-10-PCS; 2018-09-04)
DX: E11.621 Type 2 diabetes mellitus with foot ulcer (principal); I69.354 Hemiplegia and hemiparesis following cerebral infarction affecting left non-dominant side; L97.526 Non-pressure chronic ulcer of other part of left foot with bone involvement without evidence of necrosis; M86.172 Other acute osteomyelitis, left ankle and foot; E11.69 Type 2 diabetes mellitus with other specified complication; E78.5 Hyperlipidemia, unspecified; B95.2 Enterococcus as the cause of diseases classified elsewhere; I25.10 Atherosclerotic heart disease of native coronary artery without angina pectoris; E11.42 Type 2 diabetes mellitus with diabetic polyneuropathy; E11.51 Type 2 diabetes mellitus with diabetic peripheral angiopathy without gangrene; I48.91 Unspecified atrial fibrillation; I69.392 Facial weakness following cerebral infarction; I11.0 Hypertensive heart disease with heart failure; I50.9 Heart failure, unspecified; Z95.1 Presence of aortocoronary bypass graft; Z79.4 Long term (current) use of insulin
CPT/HCPCS: 36569; 71045; 76937; 80053; 80061; 80202; 82962; 83036; 83735; 84443; 85025; 85610; 85651; 85730; 87070; 87075; 87102; 87116; 88304; 88311; 93005; 93922; 93926; 93971; 97161; C1713; J0690; J1650; J1815; J2405; J3010; J3370; J7030; J7040; J7050

== ENCOUNTER 2018-12-05 13:56 | Inpatient (IN) | payer MEDICARE, BC ==
[~2018-12-05] VITALS: Ht 172.7 cm; Wt 118.2 kg
[2018-12-05] MEDS: CEFEPIME 1GM/50 ML (PMX) 50 ML IVPB SCH (00:50)
[~2018-12-05 13:56] MED LIST changes: +ASCO500C7 PO; +ATOR10TA65 PO; +CALC600T24 PO; +CHOL400T10 PO; +DEXT37.54 PO; +DILT180C94 PO; +DORZ1DRO7 BOTH EYES; +FURO40TA4 PO; +GABA300C16 PO; +INSU100I33 SC; +LACT1CAP28 PO; +LISI40TA3 PO; +METO-335 PO; +MULTI PO; +NOVO3I SC; +POTA8TAB2 PO; -SEVOFLURANE 15 MIN ONE; +SPIR25TA PO; +TAMS-14 PO; +TRAM50TA PO; +VIT1TABL65 PO; +VIT500LI PO; +WARF4TAB64 PO
[2018-12-05] MEDS ORDERED: ONDANSETRON 4 MG INJ IV PRN ×2 (17:00)
[2018-12-05] MEDS ORDERED: ACETAMINOPHEN 325 MG TAB PO PRN ×2 (17:00)
[2018-12-05] MEDS ORDERED: VANCOMYCIN IV PER PHARMACY XX SCH (17:00)
[2018-12-05] MEDS ORDERED: morphine 2 MG INJ IV PRN (17:00)
[2018-12-05] MEDS ORDERED: NACL 0.9% 3 ML SYG IV SCH (17:00)
[2018-12-05] MEDS ORDERED: HYDROCODONE/APAP (5/325) TAB PO PRN (17:00)
[2018-12-05] MEDS ORDERED: VANCOMYCIN HCL 2 GM in SOD CHLORIDE 0.9% 500 ML IVPB ONE (17:30)
[2018-12-05] MEDS ORDERED: GLUCOSE GEL 15 GRAM TUBE PO PRN ×2 (18:00)
[2018-12-05] MEDS ORDERED: GLUCOSE GEL 15 GRAM TUBE BUCCAL PRN (18:00)
[2018-12-05] MEDS ORDERED: DEXTROSE 50% 50 ML SYRINGE IV PRN ×2 (18:00)
[2018-12-05] MEDS ORDERED: GLUCAGON 1 MG INJ IM PRN (18:00)
[2018-12-05] MEDS: INSULIN ASPART [NOVOLOG] 3 ML PEN SC SCH ×3 (18:57→21:00)
[2018-12-05 23:35] VITALS: BP 159/73; PULSE 71; RESP 20
[2018-12-06 00:05] VITALS: Ht 172.7 cm; Wt 118.2 kg
[2018-12-06] MEDS: CEFEPIME 1GM/50 ML (PMX) 50 ML IVPB SCH ×2 (00:50→21:11)
[2018-12-06] MEDS: ATORVASTATIN 10 MG TAB PO SCH ×2 (00:51→21:13)
[2018-12-06] MEDS: GABAPENTIN 300 MG CAP PO SCH ×3 (00:52→21:11)
[2018-12-06] MEDS: DORZOLAMIDE/TIMOLOL/PF 0.2 ML DROPERETTE BOTH EYES SCH ×3 (00:55→21:13)
[2018-12-06] MEDS: FUROSEMIDE 40 MG INJ IV SCH ×3 (00:55→21:14)
[2018-12-06] MEDS: INSULIN GLARGINE [LANTus] (100 UNITS/ML) SYG SC SCH ×2 (01:13→21:29)
[2018-12-06] MEDS: SPIRONOLACTONE 25 MG TAB PO SCH ×2 (01:25→08:18)
[2018-12-06] MEDS: ACCU-CHEK XX SCH (02:00)
[2018-12-06 04:00] VITALS: BP 158/69; PULSE 89; RESP 20
[2018-12-06] MEDS ORDERED: VANCOMYCIN 1.25 GM/NS 250 ML 250 ML IVPB SCH ×2 (07:30→20:00)
[2018-12-06 07:51] VITALS: BP 140/65; PULSE 72; RESP 17
[2018-12-06] MEDS: ASCORBIC ACID 500 MG TAB PO SCH (08:13)
[2018-12-06] MEDS: TAMSULOSIN (SR) 0.4 MG CAP PO SCH (08:14)
[2018-12-06] MEDS: LISINOPRIL 20 MG TAB PO SCH (08:18)
[2018-12-06] MEDS: FUROSEMIDE 40 MG TAB PO SCH (08:18)
[2018-12-06] MEDS: INSULIN ASPART [NOVOLOG] 3 ML PEN SC SCH ×7 (08:34→21:30)
[2018-12-06] MEDS ORDERED: DILTIAZEM (CD) 180 MG CAP PO SCH (09:00)
[2018-12-06] MEDS ORDERED: METOPROLOL (XL) 25 MG TAB PO SCH (09:00)
[2018-12-06 11:19] VITALS: BP 132/73; PULSE 65; RESP 17
[2018-12-06 15:40] VITALS: BP 145/66; PULSE 74; RESP 17
[2018-12-06 20:00] VITALS: BP 155/71; PULSE 83; RESP 19
[2018-12-06] MEDS: METOPROLOL (XL) 25 MG TAB PO SCH (21:13)
[2018-12-07] VITALS (12 sets, daily range): BP systolic 118–160; BP diastolic 60–80; PULSE 69–80; RESP 14–19
[2018-12-07] MEDS: ACCU-CHEK XX SCH (02:00)
[2018-12-07] MEDS: INSULIN ASPART [NOVOLOG] 3 ML PEN SC SCH ×7 (08:48→21:00)
[2018-12-07] MEDS: FUROSEMIDE 40 MG INJ IV SCH ×2 (08:52→20:56)
[2018-12-07] MEDS: TAMSULOSIN (SR) 0.4 MG CAP PO SCH (08:54)
[2018-12-07] MEDS: SPIRONOLACTONE 25 MG TAB PO SCH (08:55)
[2018-12-07] MEDS: DORZOLAMIDE/TIMOLOL/PF 0.2 ML DROPERETTE BOTH EYES SCH ×2 (08:55→20:55)
[2018-12-07] MEDS: GABAPENTIN 300 MG CAP PO SCH ×2 (08:55→20:55)
[2018-12-07] MEDS: FUROSEMIDE 40 MG TAB PO SCH (08:55)
[2018-12-07] MEDS: LISINOPRIL 20 MG TAB PO SCH (08:55)
[2018-12-07] MEDS: ASCORBIC ACID 500 MG TAB PO SCH (08:55)
[2018-12-07] MEDS: METOPROLOL (XL) 25 MG TAB PO SCH ×2 (08:56→20:55)
[2018-12-07] MEDS: SOD CHLORIDE 0.45% 1,000 ML IV SCH (12:36)
[2018-12-07] MEDS ORDERED: LIDOCAINE 1% (MPF) 30 ML INJ ONE (15:54)
[2018-12-07] MEDS ORDERED: PROPOFOL 20 ML ONE (16:28)
[2018-12-07] MEDS ORDERED: MEPERIDINE 100 MG INJ ONE (16:29)
[2018-12-07] MEDS ORDERED: MIDAZOLAM 1 MG/ML 2 ML INJ ONE (16:29)
[2018-12-07] MEDS ORDERED: POLYMYXIN B 500000 UNIT INJ ONE (16:40)
[2018-12-07] MEDS ORDERED: BACITRACIN 50000 UNITS INJ ONE (16:41)
[2018-12-07] MEDS ORDERED: LABETALOL HCL 20MG INJ IV PRN (18:00)
[2018-12-07] MEDS ORDERED: DIPHENHYDRAMINE 50 MG INJ IV PRN (18:00)
[2018-12-07] MEDS ORDERED: MIDAZOLAM 1 MG/ML 2 ML INJ IV PRN (18:00)
[2018-12-07] MEDS ORDERED: EPHEDrine 25 MG/5 ML SYG IV PRN (18:00)
[2018-12-07] MEDS ORDERED: METOCLOPRAMIDE 10 MG INJ IV PRN (18:00)
[2018-12-07] MEDS ORDERED: ONDANSETRON 4 MG INJ IV PRN (18:00)
[2018-12-07] MEDS ORDERED: FENTAnyl 50 MCG/ML VIAL IV PRN ×3 (18:00)
[2018-12-07] MEDS ORDERED: hydrALAzine 20 MG INJ IV PRN (18:00)
[2018-12-07] MEDS ORDERED: MEPERIDINE 25 MG INJ IV PRN (18:00)
[2018-12-07] MEDS: VANCOMYCIN 1.25 GM/NS 250 ML 250 ML IVPB SCH (19:06)
[2018-12-07] MEDS ORDERED: VANCOMYCIN HCL 1.75 GM in SOD CHLORIDE 0.9% 500 ML IVPB SCH (20:00)
[2018-12-07] MEDS: INSULIN GLARGINE [LANTus] (100 UNITS/ML) SYG SC SCH (20:30)
[2018-12-07] MEDS: ATORVASTATIN 10 MG TAB PO SCH (20:55)
[2018-12-07] MEDS: CEFEPIME 1GM/50 ML (PMX) 50 ML IVPB SCH (21:16)
[2018-12-08] VITALS: BP 146/72; PULSE 80; RESP 18
[2018-12-08] MEDS: ACCU-CHEK XX SCH (02:00)
[2018-12-08 04:00] VITALS: BP 157/72; PULSE 76; RESP 18
[2018-12-08 07:23] VITALS: BP 148/75; PULSE 72; RESP 16
[2018-12-08] MEDS: INSULIN ASPART [NOVOLOG] 3 ML PEN SC SCH ×7 (08:29→21:37)
[2018-12-08] MEDS: DORZOLAMIDE/TIMOLOL/PF 0.2 ML DROPERETTE BOTH EYES SCH ×2 (09:17→21:01)
[2018-12-08] MEDS: LISINOPRIL 20 MG TAB PO SCH (09:17)
[2018-12-08] MEDS: GABAPENTIN 300 MG CAP PO SCH ×2 (09:17→21:01)
[2018-12-08] MEDS: TAMSULOSIN (SR) 0.4 MG CAP PO SCH (09:17)
[2018-12-08] MEDS: SPIRONOLACTONE 25 MG TAB PO SCH (09:17)
[2018-12-08] MEDS: ASCORBIC ACID 500 MG TAB PO SCH (09:18)
[2018-12-08] MEDS: METOPROLOL (XL) 25 MG TAB PO SCH ×2 (09:18→21:00)
[2018-12-08] MEDS: FUROSEMIDE 40 MG TAB PO SCH ×2 (09:48→18:24)
[2018-12-08] MEDS: VANCOMYCIN 1.25 GM/NS 250 ML 250 ML IVPB SCH (09:48)
[2018-12-08 11:22] VITALS: BP 145/74; PULSE 73; RESP 18
[2018-12-08] MEDS: SOD CHLORIDE 0.45% 1,000 ML IV SCH (12:00)
[2018-12-08 15:45] VITALS: BP 135/75; PULSE 78; RESP 18
[2018-12-08 20:00] VITALS: BP 144/67; PULSE 89; RESP 18
[2018-12-08] MEDS: LACTOBACILLUS RHAMNOSUS CAP PO SCH (21:00)
[2018-12-08] MEDS: ATORVASTATIN 10 MG TAB PO SCH (21:01)
[2018-12-08] MEDS: CEFEPIME 1GM/50 ML (PMX) 50 ML IVPB SCH (21:01)
[2018-12-08] MEDS: INSULIN GLARGINE [LANTus] (100 UNITS/ML) SYG SC SCH (21:23)
[2018-12-08] MEDS ORDERED: INSULIN ASPART [NOVOLOG] 3 ML PEN SC ONE (21:30)
[2018-12-09] VITALS: BP 133/66; PULSE 75; RESP 18
[2018-12-09] MEDS ORDERED: ACCU-CHEK XX ONE
[2018-12-09] MEDS: ACCU-CHEK XX SCH (02:00)
[2018-12-09 02:56] VITALS: BP 148/70; PULSE 72; RESP 16
[2018-12-09] MEDS: VANCOMYCIN 1.25 GM/NS 250 ML 250 ML IVPB SCH ×2 (04:00→23:16)
[2018-12-09] MEDS: FUROSEMIDE 40 MG TAB PO SCH ×2 (05:45→18:17)
[2018-12-09 08:00] VITALS: BP_SYST 110; BP_SYST 123; BP_DIAS 62; BP_DIAS 63; PULSE 84; PULSE 92; RESP 18; RESP 20
[2018-12-09] MEDS: SPIRONOLACTONE 25 MG TAB PO SCH (08:14)
[2018-12-09] MEDS: LACTOBACILLUS RHAMNOSUS CAP PO SCH ×2 (08:14→20:40)
[2018-12-09] MEDS: INSULIN ASPART [NOVOLOG] 3 ML PEN SC SCH ×7 (08:14→20:42)
[2018-12-09] MEDS: METOPROLOL (XL) 25 MG TAB PO SCH ×2 (08:16→20:41)
[2018-12-09] MEDS: LISINOPRIL 20 MG TAB PO SCH (08:16)
[2018-12-09] MEDS: ASCORBIC ACID 500 MG TAB PO SCH (08:20)
[2018-12-09] MEDS: GABAPENTIN 300 MG CAP PO SCH ×2 (08:20→20:40)
[2018-12-09] MEDS: TAMSULOSIN (SR) 0.4 MG CAP PO SCH (08:20)
[2018-12-09 14:01] VITALS: BP 136/58; PULSE 65; RESP 19
[2018-12-09] MEDS ORDERED: DORZOLAMIDE HCL BOTH EYES SCH (14:30)
[2018-12-09] MEDS ORDERED: TIMOLOL MALEAT BOTH EYES SCH (14:30)
[2018-12-09] MEDS: DORZOLAMIDE/TIMOLOL/PF 0.2 ML DROPERETTE BOTH EYES SCH (18:17)
[2018-12-09 19:47] VITALS: BP 163/71; PULSE 77; RESP 20
[2018-12-09] MEDS: ATORVASTATIN 10 MG TAB PO SCH (20:40)
[2018-12-09] MEDS: CEFEPIME 1GM/50 ML (PMX) 50 ML IVPB SCH (20:40)
[2018-12-09] MEDS: INSULIN GLARGINE [LANTus] (100 UNITS/ML) SYG SC SCH (20:41)
[2018-12-10] MEDS: ACCU-CHEK XX SCH (02:00)
[2018-12-10] MEDS: FUROSEMIDE 40 MG TAB PO SCH ×2 (05:43→17:50)
[2018-12-10 07:43] VITALS: BP 160/76; PULSE 77; RESP 18
[2018-12-10] MEDS: GABAPENTIN 300 MG CAP PO SCH (08:38)
[2018-12-10] MEDS: DORZOLAMIDE/TIMOLOL/PF 0.2 ML DROPERETTE BOTH EYES SCH (08:38)
[2018-12-10] MEDS: ASCORBIC ACID 500 MG TAB PO SCH (08:38)
[2018-12-10] MEDS: LACTOBACILLUS RHAMNOSUS CAP PO SCH (08:38)
[2018-12-10] MEDS: SPIRONOLACTONE 25 MG TAB PO SCH (08:38)
[2018-12-10] MEDS: TAMSULOSIN (SR) 0.4 MG CAP PO SCH (08:38)
[2018-12-10] MEDS: LISINOPRIL 20 MG TAB PO SCH (08:39)
[2018-12-10] MEDS: INSULIN ASPART [NOVOLOG] 3 ML PEN SC SCH ×6 (08:44→17:52)
[2018-12-10] MEDS: METOPROLOL (XL) 25 MG TAB PO SCH (08:54)
[2018-12-10] MEDS ORDERED: ENOXAPARIN 30 MG/0.3 ML SYG SC ONE (09:00)
[2018-12-10] MEDS ORDERED: CEFTRIAXONE 1 GM/50 ML (PMX) 50 ML IVPB SCH (11:00)
[2018-12-10] MEDS ORDERED: POLYETHYLENE GLYCOL 17 GM PACKET PO ONE (12:00)
[2018-12-10] MEDS ORDERED: POLYETHYLENE GLYCOL 17 GM PACKET PO PRN (12:00)
[2018-12-10] MEDS: VANCOMYCIN 1.25 GM/NS 250 ML 250 ML IVPB SCH (12:45)
[2018-12-10 13:54] VITALS: BP 163/74; PULSE 72; RESP 17
== END 2018-12-10 19:45 | disposition home health service (06) | DRG 629 ==
LOC: E/R 13:56 → TEL 16:31 → CANRESERV 19:29 → EDBEDREQSVC 20:08 → PP2 12-09 01:38 → 2NE 12-09 13:26
PROVIDERS: ADMIT Internal Medicine; ATTEND Internal Medicine
PROC: 0QU Lower Bones, Supplement (ICD-10-PCS; 2018-12-07)
PROC: 0QBR0ZZ Excision of Left Toe Phalanx, Open Approach (ICD-10-PCS; principal; 2018-12-07 16:00)
DX: E11.621 Type 2 diabetes mellitus with foot ulcer (principal); M86.9 Osteomyelitis, unspecified; E11.42 Type 2 diabetes mellitus with diabetic polyneuropathy; I11.0 Hypertensive heart disease with heart failure; I50.9 Heart failure, unspecified; Z79.4 Long term (current) use of insulin; I25.10 Atherosclerotic heart disease of native coronary artery without angina pectoris
CPT/HCPCS: 36415; 71045; 73718; 80048; 80053; 80061; 80202; 82550; 82553; 82962; 83036; 83735; 83880; 84100; 84145; 84439; 84443; 84484; 85025; 85610; 85730; 87070; 87081; 93005; 93306; 97162; C1713; G0277; J0692; J0696; J1650; J1815; J1940; J2175; J2250; J2405; J3370; J7040